=== PATIENT | female | born 1945 | race Caucasian/White ===

== ENCOUNTER 2016-08-19 06:21 | Day surgery (SDC) | payer MEDICARE, OTHER ==
[2016-08-15 15:01] VITALS: BMI 41.1
[~2016-08-19 06:21] MED LIST: ALPRAZolam 0.25 MG TAB PO PRN; ASPIRIN 325 MG TAB PO ONE; ATORVASTATIN 80 MG TAB PO STA; NITROGLYCERIN SL TABS 0.4 MG TAB SUBLINGUAL PRN; SODIUM CHLORIDE 0.9% 1,000 ML in EMPTY BAG 1 BAG IV ONE
[2016-08-19 07:17] LABS: Glucose,Whole Blood 124 mg/dL (75-99)
[2016-08-19 07:23] VITALS: TEMP 98.5
[2016-08-19] MEDS ORDERED: MIDAZOLAM 2 MG/2 ML VIAL ONE ×2 (07:41)
[2016-08-19] MEDS ORDERED: fentaNYL (PF) 50 MCG/ML 2 ML AMP ONE (07:43)
[2016-08-19] MEDS ORDERED: BENZOCAINE SPRAY 100 APPLIC/CAN MUCOUS MEM ONE (08:05)
[2016-08-19] MEDS ORDERED: SODIUM CHLORIDE 0.9% 1,000 ML IV ONE (08:05)
[2016-08-19] MEDS ORDERED: LIDOCAINE 2% INJ 20 MG/ML (20 ML MDV) ONE (08:13)
[2016-08-19] MEDS ORDERED: VERAPAMIL 2.5 MG/ML 2 ML AMP ONE (08:43)
[2016-08-19] MEDS ORDERED: IV FLUID CONTINUATION 700 ML IV ONE (09:05)
[2016-08-19] MEDS ORDERED: HEPARIN SODIUM 1,000 UNIT/ML VIAL ONE (09:08)
[2016-08-19] MEDS ORDERED: LIDOCAINE 2% INJ 20 MG/ML SQ ONE (09:12)
[2016-08-19] MEDS: VERAPAMIL SYRINGE (5 MG/10 ML) INTRAARTER ONE ×2 (09:14→09:36)
[2016-08-19] MEDS ORDERED: HEPARIN SODIUM 1,000 UNIT/ML VIAL IV ONE (09:14)
[2016-08-19] MEDS ORDERED: IOHEXOL 350 MG/ML 125ML BOTTLE INJ ONE (09:35)
[2016-08-19] MEDS ORDERED: RX INFO: IV CONTRAST WAS GIVEN 1 EACH MISC MISCELLANE PRN (09:42)
[2016-08-19] MEDS ORDERED: SODIUM CHLORIDE 0.9% 1,000 ML IV SCH (09:45)
[2016-08-19 10:00] LABS: Glucose,Whole Blood 111 mg/dL (75-99)
[2016-08-19 17:01] LABS: Glucose,Whole Blood 108 mg/dL (75-99)
[2016-08-19 17:19] LABS: Blood Urea Nitrogen 14 mg/dL (7-17); Creatine Kinase 57 U/L (30-135)
[2016-08-19 18:04] VITALS: BP 130/69; PULSE 62; RESP 18
--- NOTE | 2016-08-20 11:41 | PCN ---
TRANSESOPHAGEAL ECHOCARDIOGRAM: DATE OF SERVICE: 08/19/2016 PERFORMING PHYSICIAN: Malena BENNETT, WRITER TECHNICAL PUBLICATIONS PROCEDURE PERFORMED: Transesophageal echocardiogram. INDICATION: This is a pleasant 70-year-old female patient who was experiencing progressive exertional dyspnea and bilateral lower extremity edema. She underwent transthoracic echocardiogram which showed evidence of moderate to severe aortic stenosis. The transesophageal echocardiogram is to assess the aortic valve. She is also known to have patent foramen ovale in the ( ). COMPLICATION: None. LEVEL OF SEDATION: Moderate with a sedation length of 30 minutes. PROCEDURE DESCRIPTION: ( ). FINDINGS: The left ventricular dimension and systolic function appeared to be within normal limits with an ejection fraction of 55% to 60% and normal wall motion. The right ventricle appears to be dilated. The left atrium appears to be mildly dilated and the right atrium appears to be moderately dilated. The left atrial appendage appears to be free from any thrombus. The intra-atrial septum appears to aneurysmal with evidence of patent foramen ovale and extensive right to left shunt seen. I also suspecting that the intra-atrial septum is fenestrated with possible AST with a PFO explaining the right side enlargement. Aortic valve is trileaflet valve and looking at the valve by 2-D echocardiogram it seems to be opening with an aortic valve area of more than 2 cm2. The mitral valve appeared to be also mildly thickened with mild MR. There was mild to moderate tricuspid regurgitation seen. The pulmonic valve appears to be normal. There is what seems to be basal septal hypertrophy seen with mild LVOT obstructions. The aortic root appeared to be dilated. CONCLUSION: 1. Aneurysmal intra-atrial septum with evidence of patent foramen ovale and possible fenestrated septum with evidence of right to left shunt and left to right shunt. 2. Normal left atrial appendage without any evidence of thrombus. 3. Normal left ventricular dimension and systolic function with an ejection fraction of 55%. 4. Dilated right side with dilated right atrium as well as right ventricle. 5. Trileaflet aortic valve without any evidence of aortic stenosis with mild aortic insufficiency. 6. Basal septal hypertrophy with mild LVOT obstruction and peak gradient of 50 mmHg and mean of 25 mmHg. 7. Thickened mitral valve leaflet with mild mitral regurgitation. 8. Normal tricuspid valve and pulmonic valve. 9. Dilated aortic root. POST-PROCEDURE MANAGEMENT: 1. The patient is going to undergo coronary angiogram as well as left heart catheterization. 2. Also I will do an aortic root angiogram to assess the dilatation of the aortic root. 3. Follow up with the patient. EMERSON
--- NOTE | 2016-08-21 05:52 | PCN ---
TRANSESOPHAGEAL ECHOCARDIOGRAM DATE OF SERVICE: 08/19/2016 PERFORMING PHYSICIAN: Jim Osorio MD, certified nuclear medicine technologist. PROCEDURE PERFORMED: Transesophageal echocardiogram. INDICATION: This is a pleasant 70-year-old female patient who was experiencing progressive exertional dyspnea on bilateral lower extremities edema. She underwent transthoracic echocardiogram which showed evidence of moderate to severe aortic stenosis. The transesophageal echocardiogram is to assess the aortic valve. She is also know to have patent foramen ovale in the past. COMPLICATIONS: None. LEVEL OF SEDATION: Moderate with a sedation length of 30 minutes. PROCEDURE DESCRIPTION: ( ) FINDINGS: The left ventricular dimension and systolic function appeared to be within normal limits with an ejection fraction of about 55% to 60% and normal wall motion. The right ventricle appeared to be dilated. The left atrium appeared to be mildly dilated and the right atrium appeared to be moderately dilated. The left atrial appendage appeared to be free from any thrombus. The interatrial septum appeared to be aneurysmal with evidence of patent foramen ovale and extensive right to left shunt seen. I am also suspecting that the interatrial septum is fenestrated with possible ASD with the PFO explaining the right side enlargement. The aortic valve is trileaflet valve and looking at the valve by 2-D echo cardiogram it seems to be opening with an aortic valve area of more than 2 sq cm. The mitral valve appeared to be also mildly thickened with mild MR. There was mild to moderate tricuspid regurgitation seen. The pulmonic valve appeared to be normal. There is what seems to be basal septal hypertrophy was seen with mild LVOT obstructions. The aortic root appeared to be dilated. CONCLUSION: 1. Aneurysmal interatrial septum with evidence of patent foramen ovale and possible fenestrated septum with evidence of right to left shunt and left to right shunt. 2. Normal left atrial appendage without any evidence of thrombus. 3. Normal left ventricular dimension and systolic function with an ejection fraction of 55%. 4. Dilated right side with dilated right atrium as well as right ventricle. 5. Trileaflet aortic valve without any evidence of aortic stenosis with mild aortic insufficiency. 6. Basal septal hypertrophy with mild LVOT obstruction and peak gradient of 50 mmHg and mean of 25 mmHg. 7. Thickened mitral valve leaflets with mild mitral regurgitation. 8. Normal tricuspid valve and pulmonic valve. 9. Dilated aortic root. POSTPROCEDURE MANAGEMENT: 1. The patient is going to undergo coronary angiogram as well as left heart catheterization. 2. Also, I will do an aortic root angiogram to assess the dilatation of the aortic root. 3. Follow up with the patient. EMERSON
[2016-08-21 12:59] LABS: Non-African American GFR(MDRD) >60 (>60 ml/min/1.73 sqM)
--- NOTE | 2016-08-21 17:08 | PCN ---
CARDIAC CATHETERIZATION DATE OF SERVICE: 08/19/2016 PERFORMING PHYSICIAN: Jim Osorio M.D., beam dyer operator PROCEDURES PERFORMED: 1. Selective right and left coronary angiogram. 2. Left heart catheterization. 3. Aortic root angiogram. INDICATION: This is a pleasant 70-year-old female patient who was experiencing exertional dyspnea. The patient was brought in to undergo a KEEGAN as well as a heart catheterization. APPROACH: Right radial artery. COMPLICATIONS: None. LEVEL OF SEDATION: Moderate, with sedation length of 30 minutes. PROCEDURE DESCRIPTION: After obtaining informed consent, the patient was brought to the cardiac lab aid. The right radial artery was cannulated using micropuncture technique. The micropuncture wire passed easily. Then I placed a 6 [place]i sheath in the right radial artery. Subsequently I did selective right and left coronary angiogram using JR4 and JR3.5 catheters. After that I did the left heart catheterization using 6 [place]i pigtail catheter. Then I ended doing an aortic root angiogram. The procedure was completed without any complications. SELECTIVE CORONARY ANGIOGRAM: 1. Right coronary artery is a large-caliber vessel. It is a dominant vessel. The right coronary artery has mild disease only in the ostium. In the mid portion it is angiographically normal. Distally it is normal and bifurcates into PDA and PLV branches; both are angiographically normal. 2. The left main is angiographically normal. It bifurcates into left circumflex and left anterior descending artery. 3. The left circumflex is a large-caliber vessel and it is a non-dominant vessel. The proximal left circumflex appears to have mild disease only. The mid left circumflex appeared to be angiographically normal and gives rise to a large first OM branch, which appeared to be angiographically normal. The circumflex distally is angiographically normal. 4. Left anterior descending artery. The proximal LAD appeared to have mild disease only. The mid LAD appeared to be angiographically normal and gives rise to a diagonal branch which seems to be angiographically normal. The LAD ( ) angiographically normal and gives rise to a second diagonal which is a small- caliber vessel and seems to be angiographically normal. 5. Hemodynamics. The left ventricular end-diastolic pressure was about 20 mmHg, and there was a mild gradient across the aortic valve of about 10 mm peak to peak. 6. Aortic root angiogram. The aortic root angiogram was performed in the KAZAKH projection and using a power injection. The aortic root is definitely dilated. I will obtain a CTA for better clarification. CONCLUSION: 1. Mild non-obstructive coronary artery disease. 2. Elevated left ventricular end-diastolic pressure. 3. Mild gradient across the aortic valve with peak to peak of 10 mmHg. 4. Dilated aortic root. POST-PROCEDURE MANAGEMENT: 1. I will obtain a CTA of the thoracic aorta for better clarification. 2. Continue the current medical treatment. 3. Follow up with the patient. EMERSON
== END 2016-08-19 17:45 | disposition home or self-care (01) ==
LOC: CATHCVL 06:21
PROVIDERS: ATTEND Internal Medicine Interventional Cardiology
DX: I08.3 Combined rheumatic disorders of mitral, aortic and tricuspid valves (principal); E78.5 Hyperlipidemia, unspecified; I10 Essential (primary) hypertension; E11.9 Type 2 diabetes mellitus without complications; Q21.1 Atrial septal defect; Z79.82 Long term (current) use of aspirin; Z79.899 Other long term (current) drug therapy
CPT/HCPCS: 93312; 93320; 93325; 93458; 82550; 84520; C1769 ×2; C1894; J2001; J1644; Q9967; 82565

== ENCOUNTER → 2016-08-22 | Outpatient (CLI) | payer MEDICARE, OTHER ==
--- NOTE | 2016-08-22 13:38 | CT ---
CT CHEST FOR PULMONARY EMBOLISM. EXAMINATION TYPE: CT angio chest DATE OF EXAM: 08/22/2016 INDICATION: Fatigue, SOB, AAA CT DLP: 869 mGycm, Automated exposure control for dose reduction was used. CONTRAST: Patient injected with 100 mL of Omnipaque 350. COMPARISON: NONE TECHNIQUE: CT of the chest is performed on a spiral scan at 2 mm thick sections. Study is performed with intravenous contrast timed for evaluation for pulmonary embolism. This will limit additional po rtions of the evaluation. 3-D MIP images reconstructed by the technologist are reviewed on the compu ter in the coronal and sagittal planes. Three-D reconstructed images performed on the [employer] computer separately by the technologist are presented. FINDINGS: Aorta tapers throughout its visualized course. No dissection is evident. The ascending thoracic aorta is prominent at 4.5 cm. No mediastinal or hilar adenopathy enlarged by CT criteria is evident. The ascending aorta diameter at the level of the main pulmonary artery is 4.5 cm. The main pulmonary artery diameter at the bifur cation is 2.9 cm. Lung windows are clear. Limited CT section through the upper abdomen are unremarkable. IMPRESSIONS: 1. Ascending thoracic aortic aneurysm measuring 4.5 cm. Descending thoracic aorta tapers normally thr ough its visualized course.
== END | disposition home or self-care (01) ==
LOC: RADCTMAIN 11:25
PROVIDERS: ATTEND Internal Medicine Interventional Cardiology
DX: I71.2 Thoracic aortic aneurysm, without rupture (principal)
CPT/HCPCS: 71275; Q9967

== ENCOUNTER → 2016-09-18 | Outpatient (CLI) | payer MEDICARE, OTHER ==
--- NOTE | 2016-09-18 13:53 | MR ---
EXAMINATION TYPE: MR brain wo/w con DATE OF EXAM: 09/18/2016 COMPARISON: NONE HISTORY: transient cerebral ischemic attack per order, headache with pain behind eyes, numbness left arm per patient. TECHNIQUE: Multiplanar, multisequence images of the brain and brainstem is performed without and with IV contras t, utilizing 17 mL intravenous MultiHance . FINDINGS: Diffusion weighted images demonstrate no evidence of a recent infarct or other diffusion ab normality. There is no worrisome extra-axial fluid collection. The ventricular system and cisternal spaces are normal in size and appearance. The brain volume is age appropriate. There are scattered foci of T2 hyperintensity seen throughout the white matter bilaterally. Approximately 45-65 scattered small lesions are present. Midline structures demonstrate normal morphology. The craniocervical junction appears within normal limits. Post contrast images demonstrate no abnormal enhancement. The dural venous sinuses appear pa tent. The visualized sinuses are clear and the globes are intact. IMPRESSION: No evidence of a recent infarct. Moderate to severe nonspecific white matter changes most likely on basis of product of chronic small vessel ischemic change in patient of this age noted.
== END | disposition home or self-care (01) ==
LOC: RADMRIMAIN 12:36
PROVIDERS: ATTEND Family Medicine
DX: G45.9 Transient cerebral ischemic attack, unspecified (principal)
CPT/HCPCS: 70553; A9577

== ENCOUNTER → 2017-05-06 | Outpatient (CLI) | payer MEDICARE, OTHER ==
--- NOTE | 2017-05-07 14:24 | MM ---
Reason for exam: screening (asymptomatic). Last mammogram was performed 2 years and 2 months ago. History: Patient is postmenopausal. Benign MG stereo VAD BX LT of the left breast, July 31, 2014. Physical Findings: A clinical breast exam by your physician is recommended on an annual basis and results should be correlated with mammographic findings. MG 3D Screening Mammo W/Cad Bilateral CC and MLO view(s) were taken. Prior study comparison: February 21, 2015, left breast MG 3d diag mammo w/cad LT. July 07, 2014, left breast MG work up mamm w CAD LT. The breast tissue is heterogeneously dense. This may lower the sensitivity of mammography. Previous mammotome biopsy in the left breast. No significant changes when compared with prior studies. ASSESSMENT: Benign, BI-RAD 2 RECOMMENDATION: Routine screening mammogram of both breasts in 1 year.
== END | disposition home or self-care (01) ==
LOC: RADMAMWWP 13:42
PROVIDERS: ATTEND Family Medicine
DX: Z12.31 Encounter for screening mammogram for malignant neoplasm of breast (principal); M89.9 Disorder of bone, unspecified; Z78.0 Asymptomatic menopausal state
CPT/HCPCS: 77063; 77067

== ENCOUNTER → 2017-05-13 | Outpatient (CLI) | payer MEDICARE, OTHER ==
--- NOTE | 2017-05-14 08:15 | BD ---
EXAMINATION TYPE: MG DEXA axial skeleton. DATE OF EXAM: 05/13/2017 COMPARISON: NONE CLINICAL HISTORY: N95.1 POST MENOPAUSAL,M89.9 DISORDER OF BONE Height: 5 FT Weight: 222 FRAX RISK QUESTIONS: Alcohol (3 or more units per day): NO Family History (Parent hip fracture): NO Glucocorticoids (More than 3mos): NO (Ex: prednisone, prednisolone, methylprednisolone, dexamethasone, and hydrocortisone). History of Fracture in Adulthood: NO Secondary Osteoporosis: 1. Type 1 Diabetes: NO 2. Hyperthyroidism: NO 3. Menopause before 45: YES 4. Malnutrition: NO 5. Chronic liver disease: NO Rheumatoid Arthritis: NO Current Tobacco Use: NO RISK FACTORS HISTORY OF: Family History of Osteoporosis: YES Active: YES Postmenopausal woman: TOTAL HYST AG E 35 Take estrogen and/or progesterone medications: TOOK ESTROGEN AFTER HYST BUT DID NOT TAKE IT FOR LONG Lost more than 2 inches in height since high school: YES MEDICATIONS: Thyroid Medications: YES Which medication: LEVOTHYROXINE How Long: APPROX 10 YEARS Osteoporosis Medications: Which medication: How Long: Additional Medications: LEVOTHYROXINE, GLIPIZIDE, LISINOPRIL, SIMVASTATIN, CITALOPRAM, ASPIRIN, VIT D , PROPRANOLOL, , Additional History: EXAM MEASUREMENTS: Bone mineral densitometry was performed using the [employer] System. Bone mineral density as measured about the Lumbar spine is: ----- L1-L4(G/cm2): 1.008 T Score Values are as follows: ----- L2: -1.7 ----- L3: -1.9 ----- L4: -0.4 ----- L1-L4: -1.4 BASELINE Bone mineral density about the R hip (g/cm2): 0.729 Bone mineral density about the L hip (g/cm2): 0.732 T Score values are as follows: -----R Neck: -2.2 -----L Neck: -2.2 -----R Total: -1.2 -----L Total: -1.3 BASELINE IMPRESSION: Osteopenia. NOTE: T-SCORE=SD OF THE YOUNG ADULT MEAN.
== END | disposition home or self-care (01) ==
LOC: RADBDWWP 15:35
PROVIDERS: ATTEND Family Medicine
DX: M85.80 Other specified disorders of bone density and structure, unspecified site (principal); N95.1 Menopausal and female climacteric states
CPT/HCPCS: 77080

== ENCOUNTER → 2018-08-12 | Outpatient (CLI) | payer MEDICARE, OTHER ==
--- NOTE | 2018-08-17 09:39 | MM ---
Reason for exam: screening (asymptomatic). Last mammogram was performed 1 year and 3 months ago. History: Patient is postmenopausal. Benign MG stereo VAD BX LT of the left breast, July 31, 2014. Physical Findings: A clinical breast exam by your physician is recommended on an annual basis and results should be correlated with mammographic findings. MG 3D Screening Mammo W/Cad Bilateral CC and MLO view(s) were taken. Prior study comparison: May 06, 2017, bilateral MG 3d screening mammo w/cad. February 21, 2015, left breast MG 3d diag mammo w/cad LT. The breast tissue is heterogeneously dense. This may lower the sensitivity of mammography. No suspicious abnormality. No significant changes when compared with prior studies. ASSESSMENT: Negative, BI-RAD 1 RECOMMENDATION: Routine screening mammogram of both breasts in 1 year.
== END | disposition home or self-care (01) ==
LOC: RADMAMWWP 15:21
PROVIDERS: ATTEND Family Medicine
DX: Z12.31 Encounter for screening mammogram for malignant neoplasm of breast (principal)
CPT/HCPCS: 77063; 77067

== ENCOUNTER → 2019-03-08 | Outpatient (CLI) | payer MEDICARE, OTHER ==
--- NOTE | 2019-03-08 12:02 | XR ---
EXAMINATION TYPE: XR lumbar spine 2 or 3V DATE OF EXAM: 03/08/2019 CLINICAL HISTORY: Left-sided back pain TECHNIQUE: Frontal and lateral images of the lumbar spine are obtained. COMPARISON: 09/19/2009 FINDINGS: There is a mild dextroscoliosis of the lumbar spine. There are 5 lumbar type vertebral bod ies identified. The lumbar spine shows satisfactory alignment without evidence of acute fracture or dislocation. Vertebral body heights are maintained. Intervertebral disc space narrowing is seen at L4 -L5 and L5-S1. Multilevel facet arthropathy. Mild multilevel anterior osteophytes. Moderate atheroscl erosis of the abdominal aorta. IMPRESSION: 1. Overall moderate multilevel degenerative disc disease of the lumbar spine most pronounced of L4-S1 . 2. No acute fracture is seen in the lumbar spine.
== END | disposition home or self-care (01) ==
LOC: RADXRMAIN 10:52
PROVIDERS: ATTEND Family Medicine
DX: M51.16 Intervertebral disc disorders with radiculopathy, lumbar region (principal); M51.17 Intervertebral disc disorders with radiculopathy, lumbosacral region
CPT/HCPCS: 72100

== ENCOUNTER → 2019-08-01 | Outpatient (CLI) | payer MEDICARE, OTHER ==
[2019-08-01 11:08] LABS: African American GFR (CKD) >90 (>60 ml/min/1.73 sqM); Blood Urea Nitrogen 16 mg/dL (7-17); Non-African American GFR(CKD) >90 (>60 ml/min/1.73 sqM)
--- NOTE | 2019-08-01 12:08 | CT ---
EXAMINATION TYPE: CT angio chest DATE OF EXAM: 08/01/2019 COMPARISON: CT 08/22/2016 HISTORY: follow up known thoracic aneurysm CT DLP: 811 mGycm Automated exposure control for dose reduction was used. CONTRAST: CTA scan of the thorax is performed without and with IV Contrast, patient injected with 100 mL of Iso janel 370, pulmonary embolism protocol. MIP images are created and reviewed. 3D reconstructed images are created on an independent workstation and reviewed. FINDINGS: LUNGS: The lungs are stable, too subcentimeter pulmonary nodules in the right lower lobe are again no sergio.. There is no pleural effusion or pneumothorax seen. The tracheobronchial tree is patent. AORTA: Ascending aorta measures approximately 4.7 cm as compared to prior exam when it measured appro ximately 4.5. Proximal descending aorta measures 2.8 cm. At the level of the hiatus the aorta measure s approximately 2.4 cm. MEDIASTINUM: There is satisfactory enhancement of the pulmonary artery and its branches, there is no CT evidence for pulmonary embolism. There are no greater than 1 cm hilar or mediastinal lymph nodes. No pericardial effusion is seen. OTHER: No additional significant abnormality is seen. IMPRESSION: THORACIC AORTIC ANEURYSM SHOWS MINIMAL INTERVAL GROWTH. STABLE RIGHT LOWER LOBE PULMONARY NODULES.
== END | disposition home or self-care (01) ==
LOC: RADCTMAIN 09:53
PROVIDERS: ATTEND Internal Medicine Interventional Cardiology
DX: I71.2 Thoracic aortic aneurysm, without rupture (principal)
CPT/HCPCS: 82565; 84520; 71275; 36415; Q9967

== ENCOUNTER 2019-09-03 11:17 | Emergency (ER) | payer MEDICARE, OTHER ==
[2019-09-03 11:21] VITALS: TEMP 98.2
--- NOTE | 2019-09-03 12:01 | ED ---
General Adult HPI - General Chief complaint: Back Pain/Injury Stated complaint: Back pain,CLAUDETTE Time Seen by Provider: 09/03/19 11:45 Source: patient, RN notes reviewed Mode of arrival: ambulatory Limitations: physical limitation - History of Present Illness Initial comments: This a 73-year-old female presents emergency Department chief complaint low back pain. Patient states started 4 days ago and has not improved states that she worsen. Denies any trauma. She does state that it's worse with any sort of movement. She states approximate 4-6 weeks ago she had x-rays of her back ordered by her primary care physician because she had back pain at that time which resolved on its own. She states this pain is similar to that. She has no point of dysuria, hematuria, diarrhea constipation no abdominal pain. Patient denies fever, chills she has meant that she had a cough a few days ago which has resolved patient states she has chronic shortness of breath related to her throat which is not new today. Denies any chest pain, headache or dizziness .Patient is concerned that she has Covid because she has back pain. - Related Data Home Medications Medication Instructions Recorded Confirmed Atenolol 100 mg PO HS 06/12/15 08/15/16 Cholecalciferol [Vitamin D3 (25 5,000 unit PO HS 06/12/15 08/15/16 Mcg = 1000 Iu)] Citalopram Hydrobromide [CeleXA] 20 mg PO HS 06/12/15 08/15/16 Levothyroxine Sodium [Synthroid] 75 mcg PO QAM 06/12/15 08/19/16 Lisinopril [Zestril] 5 mg PO HS 06/12/15 08/15/16 Multivit-Min/Iron/Folic/Lutein 1 each PO HS 06/12/15 08/15/16 [Centrum Silver Women Tablet] Omeprazole 20 mg PO HS 06/12/15 08/15/16 Simvastatin [Zocor] 20 mg PO HS 06/12/15 08/15/16 glipiZIDE [Glucotrol XL] 1.25 mg PO AC-BRKFST 06/12/15 08/15/16 Aspirin 81 mg PO HS 11/20/15 08/19/16 Furosemide [Lasix] 40 mg PO DAILY 08/15/16 08/15/16 Previous Rx's Medication Instructions Recorded Nitrofurantoin Monohyd/M-Cryst 100 mg PO Q12HR #14 cap 09/03/19 [Macrobid] Allergies Allergy/AdvReac Type Severity Reaction Status Date / Time No Known Allergies Allergy Verified 09/03/19 11:21 Review of Systems ROS Statement: Those systems with pertinent positive or pertinent negative responses have been documented in the HPI. ROS Other: All systems not noted in ROS Statement are negative. Past Medical History Past Medical History: Chest Pain / Angina, Diabetes Mellitus, GERD/Reflux, Hyperlipidemia, Hypertension, Thyroid Disorder Additional Past Medical History / Comment(s): Increased SOB with activity,talking and rolling over in bed,Aortic stenosis, parkinson's History of Any Multi-Drug Resistant Organisms: None Reported Past Surgical History: Appendectomy, Cholecystectomy, Hysterectomy, Orthopedic Surgery, Tonsillectomy Additional Past Surgical History / Comment(s): right ft spurs removed; BILATERAL HAND SURGERY, cataract removal-BILATERAL Past Anesthesia/Blood Transfusion Reactions: No Reported Reaction Additional Past Anesthesia/Blood Transfusion Reaction / Comment(s): NO hx blood transfusion Past Psychological History: Depression Smoking Status: Never smoker Past Alcohol Use History: None Reported Past Drug Use History: None Reported - Past Family History Mother Family Medical History: No Reported History Additional Family Medical History / Comment(s): growths around the kidney- removed Father Family Medical History: Chest Pain / Angina, Coronary Artery Disease (CAD) Additional Family Medical History / Comment(s): CABG ( from complications od), MRSA (post CABG in [place]) General Exam Limitations: physical limitation General appearance: alert, in no apparent distress Head exam: Present: atraumatic, normocephalic, normal inspection Eye exam: Present: normal appearance, PERRL, EOMI. Absent: scleral icterus, conjunctival injection, periorbital swelling ENT exam: Present: normal exam, mucous membranes moist, TM's normal bilaterally Neck exam: Present: normal inspection, full ROM. Absent: tenderness, meningismus, lymphadenopathy Respiratory exam: Present: normal lung sounds bilaterally. Absent: respiratory distress, wheezes, rales, rhonchi, stridor Cardiovascular Exam: Present: regular rate, normal rhythm, normal heart sounds. Absent: systolic murmur, diastolic murmur, rubs, gallop, clicks GI/Abdominal exam: Present: soft, normal bowel sounds. Absent: distended, tenderness, guarding, rebound, rigid Extremities exam: Present: other (Lower extremity strength equal bilaterally, lower extremity neurovascular intact equal color equal warmth) Back exam: Present: full ROM (Pain with range of motion the lumbar spine), tenderness, paraspinal tenderness. Absent: CVA tenderness (R), CVA tenderness (L), vertebral tenderness Neurological exam: Present: alert, oriented X3, reflexes normal. Absent: motor sensory deficit Skin exam: Present: warm, dry, intact, normal color. Absent: rash Course Vital Signs 09/03/19 11:18 Temperature 98.2 F Pulse Rate 76 Respiratory 18 Rate Blood Pressure 153/73 O2 Sat by Pulse 94 L Oximetry Medical Decision Making - Medical Decision Making 73-year-old female presented for low back pain. Patient has a history of back pain she denies having trauma's time x-rays were repeated in no acute findings. Patient's pain is mechanical in nature. She has no red flag symptoms she has no difficulty and bleeding. Patient's urinalysis reveals evidence of urinary tract infection. Patient discharged on antibiotics return parameters were discussed. - Lab Data Result diagrams: 09/03/19 12:02 09/03/19 12:02 Lab Results 09/03/19 09/03/19 09/03/19 Range/Units 12:02 12:02 12:02 WBC 7.0 (3.8-10.6) k/uL RBC 4.64 (3.80-5.40) m/uL Hgb 14.1 (11.4-16.0) gm/dL Hct 42.6 (34.0-46.0) % MCV 91.6 (80.0-100.0) fL MCH 30.3 (25.0-35.0) pg MCHC 33.1 (31.0-37.0) g/dL RDW 13.1 (11.5-15.5) % Plt Count 232 (150-450) k/uL Neutrophils % 58 % Lymphocytes % 32 % Monocytes % 5 % Eosinophils % 3 % Basophils % 1 % Neutrophils # 4.1 (1.3-7.7) k/uL Lymphocytes # 2.3 (1.0-4.8) k/uL Monocytes # 0.3 (0-1.0) k/uL Eosinophils # 0.2 (0-0.7) k/uL Basophils # 0.0 (0-0.2) k/uL Sodium 138 (137-145) mmol/L Potassium 4.1 (3.5-5.1) mmol/L Chloride 102 (98-107) mmol/L Carbon Dioxide 28 (22-30) mmol/L Anion Gap 8 mmol/L BUN 15 (7-17) mg/dL Creatinine 0.44 L (0.52-1.04) mg/dL Est GFR (CKD-EPI)AfAm >90 (>60 ml/min/1.73 sqM) Est GFR (CKD-EPI)NonAf >90 (>60 ml/min/1.73 sqM) Glucose 192 H (74-99) mg/dL Plasma Lactic Acid Rey 1.7 (0.7-2.0) mmol/L Calcium 9.1 (8.4-10.2) mg/dL Total Bilirubin 0.5 (0.2-1.3) mg/dL AST 34 (14-36) U/L ALT 8 (4-34) U/L Alkaline Phosphatase 74 (38-126) U/L Total Protein 6.5 (6.3-8.2) g/dL Albumin 4.1 (3.5-5.0) g/dL Amylase 37 (30-110) U/L Lipase 64 (23-300) U/L Urine Color Urine Appearance (Clear) Urine pH (5.0-8.0) Ur Specific Baldwin (1.001-1.035) Urine Protein (Negative) Urine Glucose (UA) (Negative) Urine Ketones (Negative) Urine Blood (Negative) Urine Nitrite (Negative) Urine Bilirubin (Negative) Urine Urobilinogen (<2.0) mg/dL Ur Leukocyte Esterase (Negative) Urine RBC (0-5) /hpf Urine WBC (0-5) /hpf Ur Squamous Epith Cells (0-4) /hpf Urine Bacteria (None) /hpf Urine Mucus (None) /hpf 09/03/19 Range/Units 13:03 WBC (3.8-10.6) k/uL RBC (3.80-5.40) m/uL Hgb (11.4-16.0) gm/dL Hct (34.0-46.0) % MCV (80.0-100.0) fL MCH (25.0-35.0) pg MCHC (31.0-37.0) g/dL RDW (11.5-15.5) % Plt Count (150-450) k/uL Neutrophils % % Lymphocytes % % Monocytes % % Eosinophils % % Basophils % % Neutrophils # (1.3-7.7) k/uL Lymphocytes # (1.0-4.8) k/uL Monocytes # (0-1.0) k/uL Eosinophils # (0-0.7) k/uL Basophils # (0-0.2) k/uL Sodium (137-145) mmol/L Potassium (3.5-5.1) mmol/L Chloride (98-107) mmol/L Carbon Dioxide (22-30) mmol/L Anion Gap mmol/L BUN (7-17) mg/dL Creatinine (0.52-1.04) mg/dL Est GFR (CKD-EPI)AfAm (>60 ml/min/1.73 sqM) Est GFR (CKD-EPI)NonAf (>60 ml/min/1.73 sqM) Glucose (74-99) mg/dL Plasma Lactic Acid Rey (0.7-2.0) mmol/L Calcium (8.4-10.2) mg/dL Total Bilirubin (0.2-1.3) mg/dL AST (14-36) U/L ALT (4-34) U/L Alkaline Phosphatase (38-126) U/L Total Protein (6.3-8.2) g/dL Albumin (3.5-5.0) g/dL Amylase (30-110) U/L Lipase (23-300) U/L Urine Color Yellow Urine Appearance Cloudy H (Clear) Urine pH 5.5 (5.0-8.0) Ur Specific Baldwin 1.025 (1.001-1.035) Urine Protein Negative (Negative) Urine Glucose (UA) Negative (Negative) Urine Ketones Negative (Negative) Urine Blood Negative (Negative) Urine Nitrite Negative (Negative) Urine Bilirubin Negative (Negative) Urine Urobilinogen <2.0 (<2.0) mg/dL Ur Leukocyte Esterase Moderate H (Negative) Urine RBC 7 H (0-5) /hpf Urine WBC 16 H (0-5) /hpf Ur Squamous Epith Cells 5 H (0-4) /hpf Urine Bacteria Rare H (None) /hpf Urine Mucus Rare H (None) /hpf Disposition Clinical Impression: Lumbar back pain, Urinary tract infection Disposition: HOME SELF-CARE Condition: Stable Instructions (If sedation given, give patient instructions): Acute Low Back Pain (ED) Additional Instructions: Please return to the Emergency Department if symptoms worsen or any other concerns. Prescriptions: Nitrofurantoin Monohyd/M-Cryst [Macrobid] 100 mg PO Q12HR #14 cap Is patient prescribed a controlled substance at d/c from ED?: No Referrals: Ibis Ly MD [Primary Care Provider] - 1-2 days Time of Disposition: 13:33
[2019-09-03 12:10] LABS: Basophils % (A) 1 %; Eosinophils # (A) 0.2 k/uL (0-0.7); Eosinophils % (A) 3 %; HCT 42.6 % (34.0-46.0); HGB 14.1 gm/dL (11.4-16.0); Lymphocytes # (A) 2.3 k/uL (1.0-4.8); Lymphocytes % (A) 32 %; MCH 30.3 pg (25.0-35.0); MCHC 33.1 g/dL (31.0-37.0); MCV 91.6 fL (80.0-100.0); Mean Platelet Volume 7.7; Monocytes # (A) 0.3 k/uL (0-1.0); Monocytes % (A) 5 %; Neutrophils # (A) 4.1 k/uL (1.3-7.7); Neutrophils % (A) 58 %; Platelet Count 232 k/uL (150-450); RBC 4.64 m/uL (3.80-5.40); RDW 13.1 % (11.5-15.5)
[2019-09-03 12:29] LABS: ALT 8 U/L (4-34); AST 34 U/L (14-36); African American GFR (CKD) >90 (>60 ml/min/1.73 sqM); Albumin 4.1 g/dL (3.5-5.0); Alkaline Phosphatase 74 U/L (38-126); Amylase 37 U/L (30-110); Anion Gap 8 mmol/L; Blood Urea Nitrogen 15 mg/dL (7-17); Calcium 9.1 mg/dL (8.4-10.2); Carbon Dioxide 28 mmol/L (22-30); Chloride 102 mmol/L (98-107); Glucose 192 mg/dL (74-99); Non-African American GFR(CKD) >90 (>60 ml/min/1.73 sqM); Potassium 4.1 mmol/L (3.5-5.1); Sodium 138 mmol/L (137-145); Total Bilirubin 0.5 mg/dL (0.2-1.3); Total Protein 6.5 g/dL (6.3-8.2)
--- NOTE | 2019-09-03 12:29 | XR ---
EXAMINATION TYPE: XR chest 2V DATE OF EXAM: 09/03/2019 COMPARISON: 07/15/2010 HISTORY: Shortness of breath TECHNIQUE: Frontal and lateral views of the chest are obtained. FINDINGS: Scattered senescent parenchymal changes noted. Hyperinflation compatible with COPD. No evidence for infiltrate. No evidence for atelectasis. Heart size is stable. Mediastinal structures are stable and grossly unremarkable. No evidence for hilar prominence. Degenerative changes dorsal spine. IMPRESSION: 1. No evidence for acute pulmonary disease.
--- NOTE | 2019-09-03 12:30 | XR ---
EXAMINATION TYPE: XR lumbar spine 2 or 3V DATE OF EXAM: 09/03/2019 CLINICAL HISTORY: pain TECHNIQUE: Three views of the lumbar spine are submitted. COMPARISON: None. FINDINGS: There are 5 lumbar type vertebral bodies identified. . Vertebral body heights are within normal limit s. Severe degenerative disc space narrowing at L4-5 and L5-S1 with moderate facet joint arthropathy . 1 anterolisthesis L5 on S1 measuring an estimated 7 mm. The overlying soft tissue appears unremark able. IMPRESSION: No acute fracture is seen in the lumbar spine. ICD 10 NO FRACTURE, INITIAL EVALUATION
[2019-09-03 13:19] LABS: Appearance,Urine Cloudy (Clear); Bacteria,Urine Rare /hpf; Bilirubin,Urine Negative (Negative); Blood,Urine Negative (Negative); Color,Urine Yellow; Glucose,Urine (UA) Negative (Negative); Ketones,Urine Negative (Negative); Leukocyte Esterase,Urine Moderate (Negative); Mucus,Urine Rare /hpf; Nitrite,Urine Negative (Negative); PH, Urine 5.5 (5.0-8.0); Protein,Urine Negative (Negative); RBC,Urine 7 /hpf (0-5); Specific Gravity,Urine 1.025 (1.001-1.035); Squamous Epithelial Cell,Urine 5 /hpf (0-4); Urobilinogen,Urine <2.0 mg/dL (<2.0); WBC,Urine 16 /hpf (0-5)
[2019-09-03 13:43] VITALS: BP 136/89; PULSE 79; RESP 16
== END 2019-09-03 13:42 | disposition home or self-care (01) ==
LOC: EC 11:17
DX: M54.5 Low back pain (principal); N39.0 Urinary tract infection, site not specified; F32.9 Major depressive disorder, single episode, unspecified; E11.9 Type 2 diabetes mellitus without complications; E78.5 Hyperlipidemia, unspecified; I10 Essential (primary) hypertension; E07.9 Disorder of thyroid, unspecified; Z79.890 Hormone replacement therapy; Z79.84 Long term (current) use of oral hypoglycemic drugs; Z79.82 Long term (current) use of aspirin; Z79.899 Other long term (current) drug therapy
CPT/HCPCS: 36415; 71046; 72100; 80053; 81001; 82150; 83605; 83690; 85025; 87086; 99283

== ENCOUNTER → 2019-10-05 | Outpatient (CLI) | payer MEDICARE, OTHER ==
--- NOTE | 2019-10-05 11:30 | FL ---
Barium swallow HISTORY: Dysphasia 1 minute 10 seconds fluoroscopy time, 75 images obtained Patient was given high density barium to drink. 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 Tertiary esophageal contractions were identified. No gastroesophageal reflux or hiata l hernia was identified. There is no laryngeal penetration or aspiration. IMPRESSION: Findings suggestive of a stricture in the cervical esophagus.
== END | disposition home or self-care (01) ==
LOC: RADXRMAIN 08:18
PROVIDERS: ATTEND Otolaryngology
DX: R13.10 Dysphagia, unspecified (principal)
CPT/HCPCS: 74220

== ENCOUNTER → 2019-12-05 | Outpatient (CLI) | payer MEDICARE, OTHER ==
--- NOTE | 2019-12-05 19:14 | BD ---
EXAMINATION TYPE: Axial Bone Density DATE OF EXAM: 12/05/2019 COMPARISON: 05/13/2017 CLINICAL HISTORY: Post menopausal screening Height: 59.2 IN Weight: 214 LBS FRAX RISK QUESTIONS: Secondary Osteoporosis: 3. Menopause before 45: YES TOTAL HYST AGE 34 RISK FACTORS HISTORY OF: Active: YES Postmenopausal woman: TOTAL HYST AGE 34 Take estrogen and/or progesterone medications: NOT NOW How long: AGE 35-37 Lost more than 2 inches in height since high school: YES 3" MEDICATIONS: Thyroid Medications: YES Which medication: Levothyroxine How Lon+ YEARS Additional Medications: CALCIUM, VIT D, LEVOTHYROXINE, GLIPIZIDE, CENTRUM SILVER, PROPRANOLOL, LISINO PRIL, SIMVASTATIN, CITALOPRAM, ASPIRIN, CARBIDOPA EXAM MEASUREMENTS: Bone mineral densitometry was performed using the [employer] System. Bone mineral density as measured about the Lumbar spine is: ----- L1-L4(G/cm2): 1.043 T Score Values are as follows: ----- L2: -1.1 ----- L3: -1.6 ----- L4: -0.2 ----- L1-L4: -1.1 Bone mineral density has: Decreased -4.3% since study of: 05/13/2017 Bone mineral density about the R hip (g/cm2): 0.695 Bone mineral density about the L hip (g/cm2): 0.734 T Score values are as follows: -----R Neck: -2.5 -----L Neck: -2.2 -----R Total: -1.1 -----L Total: -1.1 Bone mineral density has: Increased 1.4% since study of: 05/13/2017 IMPRESSION: Osteoporosis (T Score less than -2.5). There is increased fracture risk and therapy is usually indicated based on age. Re-Screen 1-2 years. NOTE: T-SCORE=SD OF THE YOUNG ADULT MEAN.
--- NOTE | 2019-12-06 13:58 | MM ---
Reason for exam: screening (asymptomatic). Last mammogram was performed 1 year and 4 months ago. History: Patient is postmenopausal. Benign MG stereo VAD BX LT of the left breast, July 31, 2014. Physical Findings: A clinical breast exam by your physician is recommended on an annual basis and results should be correlated with mammographic findings. MG 3D Screening Mammo W/Cad Bilateral CC and MLO view(s) were taken. Prior study comparison: August 12, 2018, bilateral MG 3d screening mammo w/cad. May 06, 2017, bilateral MG 3d screening mammo w/cad. The breast tissue is heterogeneously dense. This may lower the sensitivity of mammography. Focal asymmetry left CC is stable. No significant changes when compared with prior studies. ASSESSMENT: Benign, BI-RAD 2 RECOMMENDATION: Routine screening mammogram of both breasts in 1 year.
== END | disposition home or self-care (01) ==
LOC: RADMAMWWP 12:26
PROVIDERS: ATTEND Family Medicine
DX: Z12.31 Encounter for screening mammogram for malignant neoplasm of breast (principal); M81.0 Age-related osteoporosis without current pathological fracture
CPT/HCPCS: 77063; 77067; 77080

== ENCOUNTER → 2021-02-12 | Outpatient (CLI) | payer MEDICARE, OTHER ==
--- NOTE | 2021-02-18 11:19 | MM ---
Reason for exam: screening (asymptomatic). Last mammogram was performed 1 year and 2 months ago. History: Patient is postmenopausal. Benign MG stereo VAD BX LT of the left breast, July 31, 2014. Physical Findings: A clinical breast exam by your physician is recommended on an annual basis and results should be correlated with mammographic findings. MG 3D Screening Mammo W/Cad Bilateral CC and MLO view(s) were taken. Prior study comparison: December 05, 2019, bilateral MG 3d screening mammo w/cad. August 12, 2018, bilateral MG 3d screening mammo w/cad. There are scattered fibroglandular densities. Previous mammotome biopsy in the left breast. There is chronic nodularity bilaterally. No significant changes when compared with prior studies. ASSESSMENT: Benign, BI-RAD 2 RECOMMENDATION: Routine screening mammogram of both breasts in 1 year.
== END | disposition home or self-care (01) ==
LOC: RADMAMWWP 13:12
PROVIDERS: ATTEND Family Medicine
DX: Z12.31 Encounter for screening mammogram for malignant neoplasm of breast (principal); Z78.0 Asymptomatic menopausal state
CPT/HCPCS: 77063; 77067

== ENCOUNTER 2021-04-27 21:18 | Emergency (ER) | payer MEDICARE, OTHER ==
[2021-04-27 21:27] VITALS: RESP 18; TEMP 98.2
[2021-04-27] MEDS ORDERED: HYDROmorphone 1 MG/ML 1 ML SYRINGE IM STA (22:01)
--- NOTE | 2021-04-27 22:01 | ED ---
Fall HPI - General Chief Complaint: Fall Stated Complaint: Fall Time Seen by Provider: 04/27/21 21:24 Source: patient, EMS, RN notes reviewed, old records reviewed Mode of arrival: EMS Limitations: no limitations - History of Present Illness Initial Comments: This is a 75-year-old female to the emergency department today. Patient resents with just a mechanical fall. Patient states she tripped over a rug at her house. Landing on her right side right knee right chest right shoulder) patient has maintained pain noted to be in her right shoulder. Unable to move right arm. Patient is on blood thinners. Did not hit her head with no neck pain or headache, no loss of consciousness. Patient currently without headache chest pain shortness of breath or abdominal pain. 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 Place Fall Occurred: home Loss of Consciousness: none Prolonged Down Time?: no Symptoms Prior to Fall: none Location - Extremities: Right: Shoulder, Thigh, Knee, Leg Severity: severe Severity scale (1-10): 7 Quality: sharp Context: tripped/slipped Associated Symptoms: denies - Related Data Home Medications Medication Instructions Recorded Confirmed Cholecalciferol [Vitamin D3 (25 5,000 unit PO HS 06/12/15 09/03/19 Mcg = 1000 Iu)] Citalopram Hydrobromide [CeleXA] 20 mg PO HS 06/12/15 09/03/19 Multivit-Min/Iron/Folic/Lutein 1 each PO HS 06/12/15 09/03/19 [Centrum Silver Women Tablet] Omeprazole 20 mg PO 06/12/15 09/03/19 Simvastatin [Zocor] 20 mg PO HS 06/12/15 09/03/19 glipiZIDE [Glucotrol XL] 2.5 mg PO AC-BRKFST 06/12/15 09/03/19 Aspirin 325 mg PO DAILY 09/03/19 09/03/19 Carbidopa/Levodopa [Sinemet 25-100 1 tab PO DAILY 09/03/19 09/03/19 mg] Levothyroxine Sodium 88 mcg PO DAILY 09/03/19 09/03/19 Lisinopril [Prinivil] 10 mg PO DAILY 07/11/20 07/11/20 Propranolol HCl 80 mg PO DAILY 09/03/19 09/03/19 Previous Rx's Medication Instructions Recorded Nitrofurantoin Monohyd/M-Cryst 100 mg PO Q12HR #14 cap 09/03/19 [Macrobid] Allergies Allergy/AdvReac Type Severity Reaction Status Date / Time No Known Allergies Allergy Verified 09/03/19 11:21 Review of Systems ROS Statement: Those systems with pertinent positive or pertinent negative responses have been documented in the HPI. ROS Other: All systems not noted in ROS Statement are negative. Past Medical History Past Medical History: Chest Pain / Angina, Diabetes Mellitus, GERD/Reflux, Hyperlipidemia, Hypertension, Thyroid Disorder Additional Past Medical History / Comment(s): Increased SOB with activity,talking and rolling over in bed,Aortic stenosis, parkinson's History of Any Multi-Drug Resistant Organisms: None Reported Past Surgical History: Appendectomy, Cholecystectomy, Hysterectomy, Orthopedic Surgery, Tonsillectomy Additional Past Surgical History / Comment(s): right ft spurs removed; BILATERAL HAND SURGERY, cataract removal-BILATERAL Past Anesthesia/Blood Transfusion Reactions: No Reported Reaction Additional Past Anesthesia/Blood Transfusion Reaction / Comment(s): NO hx blood transfusion Past Psychological History: Depression Smoking Status: Never smoker Past Alcohol Use History: None Reported Past Drug Use History: None Reported - Past Family History Mother Family Medical History: No Reported History Additional Family Medical History / Comment(s): growths around the kidney- removed Father Family Medical History: Chest Pain / Angina, Coronary Artery Disease (CAD) Additional Family Medical History / Comment(s): CABG ( from complications od ), MRSA (post CABG in [place]) General Exam General appearance: alert, in no apparent distress Head exam: Present: atraumatic, normocephalic, normal inspection Eye exam: Present: normal appearance, PERRL, EOMI. Absent: scleral icterus, conjunctival injection, periorbital swelling ENT exam: Present: normal exam, mucous membranes moist Neck exam: Present: normal inspection. Absent: tenderness, meningismus, lymphadenopathy Respiratory exam: Present: normal lung sounds bilaterally. Absent: respiratory distress, wheezes, rales, rhonchi, stridor Cardiovascular Exam: Present: regular rate, normal rhythm, normal heart sounds. Absent: systolic murmur, diastolic murmur, rubs, gallop, clicks GI/Abdominal exam: Present: soft, normal bowel sounds. Absent: distended, tenderness, guarding, rebound, rigid Extremities exam: Present: normal inspection, tenderness (Significant tenderness to right shoulder area), normal capillary refill. Absent: full ROM, pedal edema, joint swelling, calf tenderness Back exam: Present: normal inspection Neurological exam: Present: alert, oriented X3, CN II-XII intact Psychiatric exam: Present: normal affect, normal mood Skin exam: Present: warm, dry, intact, normal color. Absent: rash Course Vital Signs 04/27/21 04/27/21 21:19 23:50 Temperature 98.2 F Pulse Rate 65 87 Respiratory 18 18 Rate Blood Pressure 199/93 163/85 O2 Sat by Pulse 92 L 96 Oximetry - Reevaluation(s) Reevaluation #1: Medical record is reviewed Patient symptoms are improved here in the ER Patient feels comfortable for discharge home Medical Decision Making - Medical Decision Making 75 female to the emergency department for mechanical fall patient tripped over a rug in her house. Landing on right shoulder right humerus fracture, fractures alert a sling and patient can be discharged home - Radiology Data Radiology results: report reviewed (Chest x-ray pelvis x-ray right hip right knee x-ray negative for acute disease. X-ray right shoulder shows positive impacted proximal humerus fracture), image reviewed Disposition Clinical Impression: Fall, Closed right humeral fracture, Proximal humerus fracture Disposition: HOME SELF-CARE Condition: Good Instructions (If sedation given, give patient instructions): Fall Prevention for Older Adults (ED), Proximal Humerus Fracture (ED) Is patient prescribed a controlled substance at d/c from ED?: No Referrals: Ibis Ly MD [Primary Care Provider] - 1-2 days Sylvester Peñaloza MD [STAFF PHYSICIAN] - 1-2 days
--- NOTE | 2021-04-27 22:42 | XR ---
EXAMINATION TYPE: XR chest 1V portable DATE OF EXAM: 04/27/2021 COMPARISON: 09/03/2019 HISTORY: Chest pain TECHNIQUE: Single view FINDINGS: There is no heart failure nor confluent pneumonic infiltrate. Costophrenic angles are clear . Bony thorax is intact IMPRESSION: No active cardiopulmonary disease. Normal heart. No change.
--- NOTE | 2021-04-27 22:43 | XR ---
EXAMINATION TYPE: XR shoulder complete RT DATE OF EXAM: 04/27/2021 COMPARISON: NONE HISTORY: Fall. Pain TECHNIQUE: 3 views FINDINGS: There is a comminuted slightly impacted fracture of the humeral neck. There is no dislocati on. There is displacement of the fragments up to 1 cm. Scapula appears intact. IMPRESSION: Acute comminuted humeral neck fracture with impaction.
--- NOTE | 2021-04-27 22:44 | XR ---
EXAMINATION TYPE: XR humerus RT DATE OF EXAM: 04/27/2021 COMPARISON: NONE HISTORY: All. Pain TECHNIQUE: 2 views FINDINGS: There is an impacted comminuted humeral neck fracture. No dislocation. The elbow joint appe ars anatomic. IMPRESSION: Acute humeral neck impacted comminuted fracture.
--- NOTE | 2021-04-27 22:58 | XR ---
EXAMINATION TYPE: XR knee complete RT DATE OF EXAM: 04/27/2021 COMPARISON: NONE HISTORY: Pain TECHNIQUE: 3 views FINDINGS: There is no sign of fracture nor dislocation. There is subcutaneous edema anterior to the p atella. Patella is intact. Joint spaces are fairly normal. IMPRESSION: Negative right knee exam. No fracture seen.
--- NOTE | 2021-04-27 22:59 | XR ---
EXAMINATION TYPE: XR Hip RT and AP Pelvis DATE OF EXAM: 04/27/2021 COMPARISON: NONE HISTORY: Pain TECHNIQUE: 3 views FINDINGS: Pelvic ring is intact. Proximal right femur and hip joint are intact. Exam limited by patie nt size. Sacroiliac joints are intact. IMPRESSION: No acute abnormality of the pelvis and right hip.
[2021-04-27] MEDS ORDERED: Acetaminophen-Codeine 300-30mg TAB PO STA (23:50)
[2021-04-27] MEDS ORDERED: ACET/COD 300 MG/30 MG STARTER PACK 6 TAB BTL PO STA (23:50)
[2021-04-27 23:51] VITALS: BP 163/85; PULSE 87
== END 2021-04-28 00:16 | disposition home or self-care (01) ==
LOC: EC 21:18
DX: S42.201A Unspecified fracture of upper end of right humerus, initial encounter for closed fracture (principal); E11.9 Type 2 diabetes mellitus without complications; I10 Essential (primary) hypertension; E78.5 Hyperlipidemia, unspecified; K21.9 Gastro-esophageal reflux disease without esophagitis; G20 Parkinson's disease; F32.A Depression, unspecified; Z79.84 Long term (current) use of oral hypoglycemic drugs; Z79.82 Long term (current) use of aspirin; Z79.890 Hormone replacement therapy; Z79.899 Other long term (current) drug therapy; W01.0XXA Fall on same level from slipping, tripping and stumbling without subsequent striking against object, initial encounter; Y92.009 Unspecified place in unspecified non-institutional (private) residence as the place of occurrence of the external cause
CPT/HCPCS: 73502; 73030; 73060; 73562; 71045; 99284; 96372; J1170

== ENCOUNTER → 2021-04-29 | Outpatient (CLI) | payer MEDICARE | END | disposition home or self-care (01) | LOC: LABPAT 12:55 | PROVIDERS: ATTEND Orthopaedic Surgery | DX: Z01.812 Encounter for preprocedural laboratory examination (principal); S42.241A 4-part fracture of surgical neck of right humerus, initial encounter for closed fracture; Z22.322 Carrier or suspected carrier of Methicillin resistant Staphylococcus aureus; Y99.9 Unspecified external cause status | CPT/HCPCS: 87070 ==

== ENCOUNTER 2021-05-07 07:41 | Day surgery (SDC) | payer MEDICARE ==
[2021-05-03 12:47] VITALS: BMI 39.1
--- NOTE | 2021-05-06 10:50 | HP ---
HISTORY AND PHYSICAL CHIEF COMPLAINT: Right shoulder pain. HISTORY OF PRESENT ILLNESS: This patient is a 75-year-old retired female who presents with right shoulder pain after an injury on 04/27/2020 when she tripped and fell on a rug at home. She had no loss of consciousness. Initially she was seen in the hospital and placed in a sling. She denies previous injury. She notes significant pain. PAST MEDICAL HISTORY: Significant for type 2 diabetes, Parkinson's, hypothyroidism, aortic stenosis. PAST SURGICAL HISTORY: Negative. CURRENT MEDICATIONS: Hydrocodone. ALLERGIES: SHE DENIES DRUG ALLERGIES. FAMILY HISTORY: Significant for heart disease. SOCIAL HISTORY: Negative for current tobacco or alcohol use. REVIEW OF SYSTEMS: Sixteen-point review of systems otherwise reviewed and is noncontributory. PHYSICAL EXAMINATION: On examination, the patient is approximately 5 feet 2 inches, 195 pounds of endomorphic habitus. HEENT exam is nonfocal. Neck is supple. On examination of the right shoulder, she is tender about the anterior subacromial space and glenohumeral joint. She has moderate anterior swelling. Skin is intact. She has limited motion secondary to pain. She is nontender about the right elbow and wrist. Her distal neurovascular exam appears intact in the right upper extremity. X-rays from the hospital of the right shoulder were reviewed and show a displaced 4- part proximal humerus fracture. IMPRESSION: 1. Right displaced 4-part proximal humerus fracture. 2. Parkinson's disease. 3. History of aortic stenosis. 4. Hjl-zmwspvc-yhcogwogf diabetes. RECOMMENDATIONS: I talked to the patient at length regarding her condition along with treatment options. At this point she is quite symptomatic and limited because of pain. After thorough discussion, she opts to proceed with surgery. We will plan to proceed with right shoulder cemented hemiarthroplasty. Risks and benefits were discussed at length in layman's terms. MMODL / IJN: [id number] /
[~2021-05-07 07:41] MED LIST changes: +ACETAMINOPHEN TAB 500 MG TAB PO PRN; -ALPRAZolam 0.25 MG TAB PO PRN; -ASPIRIN 325 MG TAB PO ONE; -ATORVASTATIN 80 MG TAB PO STA; +DEXAMETHASONE SOD PHOSPHATE 4 MG/ML 1 ML VIAL IV ONE; +HYDROmorphone 0.5 MG/0.5 ML SYRINGE IVP PRN; +MELOXICAM 7.5 MG TAB PO PRN; -NITROGLYCERIN SL TABS 0.4 MG TAB SUBLINGUAL PRN; +ONDANSETRON 4 MG/2 ML VIAL IVP ONE; -SODIUM CHLORIDE 0.9% 1,000 ML in EMPTY BAG 1 BAG IV ONE; +TRANEXAMIC ACID IN NACL,ISO-OS 1,000 MG in SALINE 1 100ML.BAG IVPB PRN
[2021-05-07] MEDS: LACTATED RINGERS 1,000 ML IV SCH ×3 (08:55→16:59)
[2021-05-07] MEDS ORDERED: LIDOCAINE 1% (10MG/ML) FOR IV START INTRADERMA ONE (08:55)
[2021-05-07 09:08] LABS: Glucose,Whole Blood 116 mg/dL (75-99)
[2021-05-07] MEDS ORDERED: MIDAZOLAM 2 MG/2 ML VIAL IV ONE (09:15)
[2021-05-07] MEDS ORDERED: TRANEXAMIC ACID IN NACL,ISO-OS 1,000 MG/100 ML BAG ONE (09:40)
[2021-05-07] MEDS ORDERED: GLYCOPYRROLATE 0.2 MG/ML 2 ML VIAL ONE (09:40)
[2021-05-07] MEDS ORDERED: NEOSTIGMINE 1 MG/ML 10 ML VIAL ONE (09:40)
[2021-05-07] MEDS ORDERED: fentaNYL (PF) 50 MCG/ML 2 ML AMP ONE (09:40)
[2021-05-07] MEDS ORDERED: ROCURONIUM 10 MG/ML (5 ML VIAL) IV ONE (09:40)
[2021-05-07] MEDS ORDERED: PHENYLEPHRINE-0.9% NACL SYG 1,000 MCG/10 ML SYRINGE ONE (09:40)
[2021-05-07] MEDS ORDERED: SUCCINYLCHOLINE CHLORIDE 100 MG/5 ML SYR IV ONE (09:40)
[2021-05-07] MEDS ORDERED: ETOMIDATE 2 MG/ML 10 ML VIAL ONE (09:40)
[2021-05-07] MEDS ORDERED: ePHEDrine 50 MG/ML 1 ML VIAL ONE (09:40)
[2021-05-07] MEDS ORDERED: LIDOCAINE 1% INJ 10MG/ML (20 ML MDV) ONE (09:40)
[2021-05-07] MEDS ORDERED: ALBUTEROL HFA INHALER INHALATION ONE (09:40)
[2021-05-07] MEDS ORDERED: ROPIVACAINE 5 MG/ML 30 ML VIAL ONE (09:40)
--- NOTE | 2021-05-07 10:13 | P.ANPRN ---
Procedure Note - Anesthesia - Nerve Block Performed Right Interscalene Single Time Out Performed: Yes (1015) Date of Procedure: 05/07/21 Procedure Start Time: :15 Procedure Stop Time: Location of Patient: PreOp Indication: Acute Post-Operative Pain, Requested by Surgeon Sedation Type: Sedate with meaningful contact maintained Preparation: Sterile Prep Position: Sitting Catheter: None Needle Types: Pajunk Needle Gauge: 21 Ultrasound used to visualize needle placement: Yes Ultrasound used to observe medication spread: Yes Injectate: 0.5% Ropivacaine (see comment for volume) (25 ml) Blood Aspirated: No Pain Paresthesia on Injection Noted: No Resistance on Injection: Normal Image Stored and Saved: Yes Events: Uneventful and Well Tolerated (Difficulty to visualize brachial plexus trunks. Used 25 mL of the block solution.)
[2021-05-07] MEDS ORDERED: ceFAZolin 1,000 MG in SODIUM CHLORIDE 0.9% 1,000 ML IRRIGATION ONE (10:16)
[2021-05-07] MEDS ORDERED: SENNOSIDES-DOCUSATE SODIUM 1 EACH TAB PO PRN (11:29)
[2021-05-07] MEDS ORDERED: HYDROmorphone 0.5 MG/0.5 ML SYRINGE IVP PRN (11:29)
[2021-05-07] MEDS ORDERED: HYDROcodone/APAP 5-325MG 1 EACH TAB PO PRN (11:29)
[2021-05-07] MEDS ORDERED: ONDANSETRON 4 MG/2 ML VIAL IVP PRN (11:29)
[2021-05-07] MEDS ORDERED: polyethylene glycoL 3350 17 GM POWD.PACK PO PRN (11:33)
--- NOTE | 2021-05-07 11:53 | P.OP ---
Date of Procedure: 05/07/21 Preoperative Diagnosis: Displaced right 4 part proximal humerus fracture Postoperative Diagnosis: Same Procedure(s) Performed: Right shoulder cemented hemiarthroplasty Implants: [employer] FX size 8 long cemented humeral stem, size 10/0 body, 48 mm suture collar, 48 mm x 15 mm humeral head Anesthesia: danyelle BUSTAMANTE Surgeon: Sylvester Peñaloza Servicer #1: Wallace Riley Estimated Blood Loss (ml): 150 Pathology: other (Humeral head) Condition: stable Disposition: PACU Indications for Procedure: The patient is a 75-year-old female who presents with a right displaced 4 part proximal humerus fracture after a recent fall. A discussion of the risks and benefits of operative intervention versus conservative measures made with patient. With the degree of initial displacement, I recommended proceeding with surgery. Operative options were discussed to include hemiarthroplasty versus reverse total shoulder arthroplasty. She does have significant neuromuscular disease, therefore and the arthroplasty was chosen. Specific risks of the surgery to include infection, neurovascular injury, development of blood clots, possible nonunion of the tuberosities, possible instability and need for subsequent procedures was discussed. Informed consent was obtained. Operative Findings: As below Description of Procedure: The patient was brought to the operating room, and after induction of general anesthesia was placed in a beachchair position. Bony prominences were appropriately padded. The right upper extremity was prepped and draped in normal fashion per the bony outlines the acromion and coracoid process were outlined with a skin marker. A deltopectoral incision was then made lateral to the coracoid process. Skin was incised sharply. Subcutaneous tissues were divided bluntly. Electrocautery was used for hemostasis. The deltopectoral interval was identified and the cephalic vein was gently retracted laterally with the deltoid. Subdeltoid adhesions were bluntly dissected. The upper portion of the pectoralis major was released to aid in exposure. The clavipectoral fascia was opened and retracted medially. The biceps was identified and the rotator interval was opened. The biceps was tenotomized and allowed to retract distally. The greater lesser tuberosities were then dissected and tagged with #2 Ethibond suture. The humeral head was extracted. This sized most appropriately at 48 mm. The glenoid was inspected. Attention was then paid towards preparing the humeral shaft. The shaft was reamed by hand up to a size 8. There was good distal fit and chatter. The alignment clamp was placed on the humeral shaft planning on 30 of retroversion. A long size 8 humeral stem was inserted in the appropriate retroversion along with a size 10/0 body. A 48 x 15 mm trial head was placed. The shoulder was gently reduced. The tuberosities were re-approximated. I felt that adequate faith of overall height. The shoulder was gently dislocated. The trial components were removed. The final size 8 cemented humeral stem with a size 10/0 body was inserted after pressurizing the canal by hand. Excess cement was removed. Again this is placed in 30 of retroversion and maintained at the appropriate height with the clamp. Once the cement had sufficiently hardened, the clamp was then removed. A suture collar was placed and impacted. Multiple #2 Ethibond sutures were passed for reattachment of the tuberosities. The tuberosities were then reattached to each other with previously placed sutures. They were then sutured down to the suture collar. The rotator interval was closed with #2 Ethibond suture. The final construct showed adequate faith of tuberosity height and overall stabilization. The wound was irrigated with pulsatile lavage. The rotator interval was closed with interrupted 2-0 Vicryl sutures. The subcu tissues reapproximated interrupted 2-0 Vicryl sutures. The skin was reapproximated with 3-0 subcuticular Prolene suture. Steri-Strips were applied. A sterile dressing was applied in addition to a sling. The patient was awoken from general anesthesia and transferred to recovery room in fair condition. Blood loss was estimated 150 mL. No complications were incurred. Sponge and needle counts were correct at the end the case. Arnol THEODORE assisted during the major components the case to include positioning, exposure, implantation, and closure.
[2021-05-07] MEDS ORDERED: LACTATED RINGERS 1,000 ML IV ONE (13:11)
[2021-05-07] MEDS: SODIUM CHLORIDE 0.45% 1,000 ML IV SCH (14:57)
--- NOTE | 2021-05-07 14:57 | XR ---
EXAMINATION TYPE: XR shoulder limited RT DATE OF EXAM: 05/07/2021 COMPARISON: 04/27/2021 HISTORY: 75-year-old female status post right shoulder hemiarthroplasty TECHNIQUE: AP view FINDINGS: Single image shows placement of a right total shoulder arthroplasty with long humeral stem component. There is offset at the margin of the greater tuberosity and surgical neck compatible with the manuela l head fracture seen on prior exam. There is 2 mm of lateral cortical margin offset. Alignment otherw ise grossly anatomic. Scattered soft tissue air related to recent operation. IMPRESSION: 1. Interval placement of right shoulder arthroplasty. Gross anatomic alignment. 2. Known underlying humeral head fracture. The greater tuberosity component shows improved alignment with only 2 mm of lateral cortical step-off now.
[2021-05-07 16:39] LABS: Glucose,Whole Blood 193 mg/dL (75-99)
[2021-05-07 20:29] LABS: Glucose,Whole Blood 161 mg/dL (75-99)
[2021-05-07] MEDS ORDERED: CHOLECALCIFEROL 125 MCG (5000 IU) TABLET PO SCH (21:00)
[2021-05-07] MEDS ORDERED: ATORVASTATIN 10 MG TAB PO SCH (21:00)
[2021-05-07] MEDS ORDERED: PANTOPRAZOLE 40 MG TABLET PO SCH (21:00)
[2021-05-07] MEDS ORDERED: CITALOPRAM HYDROBROMIDE 20 MG TAB PO SCH (21:00)
[2021-05-07] MEDS: CARBIDOPA-LEVODOPA 25-100 MG 1 EACH TAB PO SCH (21:04)
[2021-05-08] MEDS: HYDROcodone/APAP 7.5-325MG 1 EACH TAB PO PRN ×2 (02:46→08:21)
[2021-05-08 04:46] VITALS: TEMP 98.3
[2021-05-08] MEDS: SODIUM CHLORIDE 0.45% 1,000 ML IV SCH (04:59)
[2021-05-08] MEDS ORDERED: LEVOTHYROXINE 88 MCG TAB PO SCH (06:30)
[2021-05-08 07:09] LABS: Glucose,Whole Blood 141 mg/dL (75-99)
[2021-05-08 07:32] VITALS: BP 153/81; PULSE 85; RESP 16
[2021-05-08] MEDS: CARBIDOPA-LEVODOPA 25-100 MG 1 EACH TAB PO SCH ×2 (08:41→12:36)
[2021-05-08] MEDS ORDERED: ASPIRIN 325 MG TAB PO SCH (09:00)
[2021-05-08] MEDS ORDERED: lisinopriL 10 MG TAB PO SCH (09:00)
[2021-05-08] MEDS ORDERED: PROPRANOLOL 40 MG TAB PO SCH (09:00)
[2021-05-08 10:42] LABS: Glucose,Whole Blood 162 mg/dL (75-99)
--- NOTE | 2021-05-08 11:01 | P.DS ---
Providers Date of admission: 05/07/2021 Expected date of discharge: 05/08/21 Attending physician: Sylvester Peñaloza Consults: 05/07/21 11:32 Consult Physician Routine Consulting Provider: Ibis Ly Consult Reason/Comments: Medical Management Do you want consulting provider notified?: Yes Primary care physician: Ibis Ly Hospital Course: Date of admission: 05/07/2021 Date of discharge: 05/08/2021 Admission diagnosis: Displaced right 4 part proximal humerus fracture Discharge diagnosis: Same Attending physician: Dr. Peñaloza Surgical procedures: Right shoulder cemented hemiarthroplasty Brief history: Patient is a 75-year-old female with a history of displaced right 4 part proximal humerus fracture. At this point patient has failed conservative treatment measures and has opted to proceed with a elective right shoulder cemented hemiarthroplasty. Hospital course: Details of patient's surgery can be found in operative report. Patient tolerated the procedure well and was subsequently transported to orthopedic floor. Patient's orthopeidc and medical care was provided daily. Patient had daily laboratory tests performed for evaluation of overall blood counts. Patient had daily physical therapy to include strengthening range of motion as well as education with walker ambulation. Patient was treated with Aspirin for their postoperative DVT prophylaxis during their inpatient stay. Patient was noted to have a relatively uneventful postoperative course. Patient reported satisfactory pain control with oral pain medications by postoperative day 1. Patient showed satisfactory progress with physical therapy. Patient moved steadily through the program and had no difficulty meeting the goals by postoperative day 1. Given patient's otherwise satisfactory course and having met physical therapy goals, plan is to discharge patient home on postoperative day 1. Discharge condition/disposition: Patient will be discharged home in stable condition. Discharge medications: Instructions are given on resumption of patient's normal daily medications per primary care recommendation, in addition patient will be prescribed aspirin 325 mg daily 3 weeks; patient has Aurora and tramadol at home. Discharge instructions: 1. Wound care and infection precautions, keep incision dry and covered while showering, no lotions, creams, moisturizers. No soaking, tubs, pools, hottubs. Do not scrub over the incision. 2. Nonweightbearing right upper extremity. Keep right upper extremity in sling. 3. Ice when necessary. Do not exceed 20 minutes per hour with ice pack. 4. Pain meds and anticoagulants per prescription. 5. Pain medication has potential to cause constipation. Increase oral fluid and fiber intake. Contact primary care provider if you have not had a bowel movement within 48 hours after discharge 6. No anti-inflammatory medication until discussed at first post operative visit, this including Motrin, Aleve, Mobic, Diclofenac, Aspirin. 7. Follow up in office at 2 weeks postop with Arnol Riley PA-C / Gregory Garber PA-C 8. Follow up with your primary care doctor 7-10 days after discharge. 9. Contact [facility] with any questions, . Assessment: Displaced right 4 part proximal humerus fracture Procedures: Right shoulder cemented hemiarthroplasty Patient Condition at Discharge: Good Plan - Discharge Summary Discharge Rx Participant: Yes New Discharge Prescriptions: No Action glipiZIDE [Glucotrol XL] 2.5 mg PO AC-BRKFST Cholecalciferol [Vitamin D3 (25 Mcg = 1000 Iu)] 5,000 unit PO HS Simvastatin [Zocor] 20 mg PO HS Citalopram Hydrobromide [CeleXA] 20 mg PO HS Omeprazole 20 mg PO HS Propranolol HCl 80 mg PO DAILY Lisinopril [Prinivil] 10 mg PO DAILY Levothyroxine Sodium 88 mcg PO DAILY Carbidopa/Levodopa [Sinemet 25-100 mg] 1 tab PO QID Aspirin [Sunflower Aspirin EC] 81 mg PO HS HYDROcodone/APAP 7.5-325MG [[place]ora 7.5-325] 7.5 - 325 mg PO Q6HR PRN PRN Reason: Pain Control Discharge Medication List Cholecalciferol [Vitamin D3 (25 Mcg = 1000 Iu)] 5,000 unit PO HS 06/12/15 [History] Citalopram Hydrobromide [CeleXA] 20 mg PO HS 06/12/15 [History] Omeprazole 20 mg PO HS 06/12/15 [History] Simvastatin [Zocor] 20 mg PO HS 06/12/15 [History] glipiZIDE [Glucotrol XL] 2.5 mg PO AC-BRKFST 06/12/15 [History] Carbidopa/Levodopa [Sinemet 25-100 mg] 1 tab PO QID 09/03/19 [History] Levothyroxine Sodium 88 mcg PO DAILY 09/03/19 [History] Lisinopril [Prinivil] 10 mg PO DAILY 09/03/19 [History] Propranolol HCl 80 mg PO DAILY 09/03/19 [History] Aspirin [Sunflower Aspirin EC] 81 mg PO HS 05/07/21 [History] HYDROcodone/APAP 7.5-325MG [Aurora 7.5-325] 7.5 - 325 mg PO Q6HR PRN 05/07/21 [History] Follow up Appointment(s)/Referral(s): Gregory Garber, RUSTAM [PHYSICIAN DIGITAL SOLUTION ARCHITECT] - 2 Weeks Activity/Diet/Wound Care/Special Instructions: Discharge instructions: 1. Wound care and infection precautions, keep incision dry and covered while showering, no lotions, creams, moisturizers. No soaking, tubs, pools, hottubs. Do not scrub over the incision. 2. Nonweightbearing right upper extremity. Keep right upper extremity in sling. 3. Ice when necessary. Do not exceed 20 minutes per hour with ice pack. 4. Pain meds and anticoagulants per prescription. 5. Pain medication has potential to cause constipation. Increase oral fluid and fiber intake. Contact primary care provider if you have not had a bowel movement within 48 hours after discharge 6. No anti-inflammatory medication until discussed at first post operative visit, this including Motrin, Aleve, Mobic, Diclofenac, Aspirin. 7. Follow up in office at 2 weeks postop with Arnol Riley PA-C / Gregory Garber PA-C 8. Follow up with your primary care doctor 7-10 days after discharge. 9. Contact [facility] with any questions, . Medications: Aspirin 325 mg daily 3 weeks; may take Aurora and tramadol at home for pain Discharge Disposition: HOME SELF-CARE
[2021-05-08 11:46] LABS: Basophils # (A) 0.03 X 10*3/uL (0.00-0.10); Basophils % (A) 0.2 %; Eosinophils # (A) 0.01 X 10*3/uL (0.04-0.35); Eosinophils % (A) 0.1 %; HGB 11.3 g/dL (12.0-15.0); Immature Grans, Automated 0.4 %; Lymphocytes % (A) 20.2 %; MCH 28.5 pg (27.0-32.0); MCHC 31.4 g/dL (32.0-37.0); MCV 90.9 fL (80.0-97.0); Mean Platelet Volume 10.2 fL (9.5-12.2); Monocytes # (A) 1.31 X 10*3/uL (0.20-1.00); Monocytes % (A) 9.5 %; NRBC Per 100 WBC 0 /100 WBCS (0.0-0.0); Neutrophils # (A) 9.63 X 10*3/uL (1.80-7.70); Neutrophils % (A) 69.6 %; Platelet Count 333 X 10*3/uL (140-440); RBC 3.96 X 10*6/uL (4.10-5.20); WBC 13.84 X 10*3/uL (4.50-10.00)
--- NOTE | 2021-05-08 11:52 | P.CONS ---
History of Present Illness - Reason for Consult Consult date: 05/08/21 - History of Present Illness HISTORY OF PRESENT ILLNESS This is a 85-year-old female patient of Dr. Ly with past medical history of hypertension, hyperlipidemia, diabetes mellitus type 2, hypothyroidism, gastroesophageal reflux disease, aortic stenosis, Parkinson's disease. Patient has been brought into the hospital under the care of Dr. Peñaloza status post right shoulder cemented hemiarthroplasty due to displaced right four-part proximal humerus fracture. Patient had a recent fall and presented to orthopedics for surgical intervention. She is seen today postop day #1. She was afebrile, heart rate in the 80s, blood pressure initially 194/86, pulse ox 96% on room air. Patient was on a simple mask at 8 L for brief period of time yesterday. Blood pressure is now 153/81. Pulse ox is 92% on room air. Capillary blood glucose running between 116 and 193. Incentive spirometry added. Occasional reconciliation has been reviewed. REVIEW OF SYSTEMS Constitutional: No fever, no chills, no night sweats. No weight change. Reports weakness, reports fatigue. No daytime sleepiness. EENT: No headache. No blurred vision or double vision, no loss of vision. No loss of Hearing, no ringing in the ears, no dizziness. No nasal drainage or congestion. No epistaxis. No sore throat. Lungs: No shortness of breath, cough, no sputum production. No wheezing. Cardiovascular: No chest pain, no lower extremity edema. Reports palpitations. No paroxysmal nocturnal dyspnea. No orthopnea. No lightheadedness or dizziness. No syncopal episodes. Abdominal: No abdominal pain. No nausea, vomiting. No diarrhea. No constipation. No bloody or tarry stools.. No loss of appetite. Genitourinary: No dysuria, increased frequency, urgency. No urinary retention. Musculoskeletal: No myalgias. No muscle weakness, no gait dysfunction, no frequent falls. No back pain. No neck pain. Integumentary: No wounds, no lesions. No rash or pruritus. No unusual bruising. No change in hair or nails. Neurologic: No aphasia. No facial droop. No change in mentation. No head injury. No headache. No paralysis. No paresthesia. Psychiatric: No depression. No anxiety. Endocrine: No abnormal blood sugars. No weight change. SOCIAL HISTORY She is a lifelong nonsmoker, no alcohol use, no marijuana or illicit drug use. She lives at home with her . She does not utilize walker or cane at home. FAMILY HISTORY Mother is alive with no major medical problems. Father at age 66 from a myocardial infarction. Patient has 3 brothers. One brother has history of coronary artery disease status post stents. Patient has 2 children with no major medical problems. PHYSICAL EXAMINATION Gen: This is an 75-year-old female patient appears to be in no acute distress. No respiratory distress is noted HEENT: Head is atraumatic, normocephalic. Pupils equal, round. Sclerae is anicteric. NECK: Supple. No JVD. No lymphadenopathy. No thyromegaly. LUNGS: Clear to auscultation. No wheezes or rhonchi. No intercostal retractions. HEART: Regular rate and rhythm. No murmur. ABDOMEN: Soft. Bowel sounds are present. No masses. No tenderness. EXTREMITIES: No pedal edema. No calf tenderness. NEUROLOGICAL: Patient is awake, alert and oriented x3. Cranial nerves 2 through 12 are grossly intact. ASSESSMENT AND PLAN 1. Displaced right four-part proximal humerus fracture status post right shoulder cemented hemiarthroplasty 05/07. Patient is scheduled for discharge home. Continue [place] as needed for pain, aspirin for DVT prophylaxis. 2. Hypertension. Continue lisinopril 10 mg daily, propranolol 80 mg daily. 3. Hyperlipidemia. Continue simvastatin 20 mg at bedtime. 4. Hypothyroidism. Continue levothyroxine 80 g daily. 5. Gastroesophageal reflux disease. Continue omeprazole 1 mg at bedtime. 6. History of aortic stenosis, stable. 7. Vitamin D deficiency. Continue supplement. 8. Recurrent depression and generalized anxiety disorder. Continue Celexa 20 g at bedtime. DISCHARGE PLAN Home without Home Care Impression and plan of care have been directed as dictated by the signing physician. Zulay Abdi nurse practitioner acting as scribe for signing physician. Past Medical History Past Medical History: Chest Pain / Angina, Diabetes Mellitus, GERD/Reflux, Hyperlipidemia, Hypertension, Neurologic Disorder, Thyroid Disorder Additional Past Medical History / Comment(s): SOB with activity, talking and rolling over in bed at times, Aortic Stenosis, Parkinson's. History of Any Multi-Drug Resistant Organisms: None Reported Past Surgical History: Appendectomy, Cholecystectomy, Hysterectomy, Orthopedic Surgery, Tonsillectomy Additional Past Surgical History / Comment(s): Right foot spurs removed, bilateral hand surgery, bilateral cataract removal. Past Anesthesia/Blood Transfusion Reactions: No Reported Reaction Additional Past Anesthesia/Blood Transfusion Reaction / Comm: No hx blood transfusion. Past Psychological History: Anxiety, Depression Additional Psychological History / Comment(s): was taking celexa started after 1st , and now 2nd has & she is trying to cut down, pt ws advised to consult dr prior to abruptly stopping Smoking Status: Never smoker Past Alcohol Use History: None Reported Past Drug Use History: None Reported - Past Family History Mother Family Medical History: No Reported History Additional Family Medical History / Comment(s): Growths around the kidney- removed. Unsure if cancerous. Father Family Medical History: Chest Pain / Angina, Coronary Artery Disease (CAD) Additional Family Medical History / Comment(s): CABG ( from complications of), MRSA (post CABG in [place]) Brother(s) Family Medical History: Deep Vein Thrombosis (DVT) Medications and Allergies Home Medications Medication Instructions Recorded Confirmed Type Cholecalciferol [Vitamin D3 (25 5,000 unit PO HS 06/12/15 05/07/21 History Mcg = 1000 Iu)] Citalopram Hydrobromide [CeleXA] 20 mg PO HS 06/12/15 05/07/21 History Omeprazole 20 mg PO HS 06/12/15 05/07/21 History Simvastatin [Zocor] 20 mg PO HS 06/12/15 05/07/21 History glipiZIDE [Glucotrol XL] 2.5 mg PO AC-BRKFST 06/12/15 05/07/21 History Carbidopa/Levodopa [Sinemet 25-100 1 tab PO QID 09/03/19 05/07/21 History mg] Levothyroxine Sodium 88 mcg PO DAILY 09/03/19 05/07/21 History Lisinopril [Prinivil] 10 mg PO DAILY 09/03/19 05/07/21 History Propranolol HCl 80 mg PO DAILY 09/03/19 05/07/21 History HYDROcodone/APAP 7.5-325MG [[place] 7.5 - 325 mg PO Q6HR PRN 05/07/21 05/07/21 History 7.5-325] Aspirin 325 mg PO DAILY #21 tab 05/08/21 Rx Sennosides-Docusate Sodium 2 each PO HS PRN tab 05/08/21 Rx [Senokot-S] Allergies Allergy/AdvReac Type Severity Reaction Status Date / Time No Known Allergies Allergy Verified 05/07/21 08:26 Physical Exam Vitals: Vital Signs Temp Pulse Resp BP Pulse Ox 05/08/21 07:29 98.3 F 85 16 153/81 92 L 05/08/21 04:00 98.3 F 84 17 152/72 91 L 05/08/21 01:04 98.9 F 100 20 113/67 95 05/07/21 20:00 98.0 F 109 H 17 123/72 94 L 05/07/21 19:55 17 05/07/21 14:00 98.5 F 105 H 17 134/83 95 05/07/21 13:37 91 16 168/71 94 L 05/07/21 13:07 94 16 170/82 92 L 05/07/21 12:52 94 16 172/86 91 L 05/07/21 12:37 91 16 152/70 91 L 05/07/21 12:22 88 16 154/77 91 L 05/07/21 12:07 88 16 153/78 93 L 05/07/21 11:52 97.6 F 82 10 L 160/74 95 05/07/21 09:30 80 16 164/71 93 L 05/07/21 08:55 98.2 F 74 16 194/86 96 Intake and Output 05/07/21 05/08/21 05/08/21 22:59 06:59 14:59 Intake Total 900 Balance 900 Intake: Intake, IV Titration 600 Amount Sodium Chloride 0.45% 1, 500 000 ml @ 75 mls/hr IV . [id number] [facility] Rx#:[id number] ceFAZolin 2 gm In Sodium 100 Chloride 0.9% 50 ml @ 100 mls/hr IVPB ONCE PRN Rx# :[id number] Oral 300 Other: # Voids 2 5 # Bowel Movements 0 Weight 97.8 kg Results CBC & Chem 7: 05/08/21 07:34 Labs: Abnormal Lab Results - Last 24 Hours (Table) 05/07/21 05/07/21 05/07/21 Range/Units 08:57 16:38 20:27 POC Glucose (mg/dL) 116 H 193 H 161 H (75-99) mg/dL 05/08/21 Range/Units 07:08 POC Glucose (mg/dL) 141 H (75-99) mg/dL
[2021-05-08] MEDS: LACTATED RINGERS 1,000 ML IV SCH (12:35)
--- NOTE | 2021-05-08 13:05 | P.PN ---
Subjective Progress Note Date: 05/08/21 Principal diagnosis: Displaced right 4 part proximal humerus fracture Patient was seen at bedside this morning resting comfortably with sling over right upper extremity and dressing on right shoulder. Patient states she has been up and about walking since surgery yesterday. Patient says she is in moderate pain in the right shoulder. She says she is ready to go home. Patient says she has not had bowel movement yet, however, patient says she has been p assing gas. Patient denies numbness/tingling in the right arm. Patient denies chest pain, fever, chest breath, nausea, vomiting, change in vision, loss of bowel/bladder control. Objective - Vital Signs Vital signs: Vital Signs Temp 98.3 F 05/08/21 07:29 Pulse 85 05/08/21 07:29 Resp 16 05/08/21 07:29 BP 153/81 05/08/21 07:29 Pulse Ox 92 L 05/08/21 07:38 Intake & Output 05/07/21 05/08/21 05/08/21 18:59 06:59 18:59 Intake Total 1026 900 Output Total 150 Balance 876 900 Weight 97.8 kg Intake: IV 1026 Intake, IV Titration 600 Amount Sodium Chloride 0.45% 1, 500 000 ml @ 75 mls/hr IV . [id number] [facility] Rx#:[id number] ceFAZolin 2 gm In Sodium 100 Chloride 0.9% 50 ml @ 100 mls/hr IVPB ONCE PRN Rx# :[id number] Oral 300 Output: Estimated Blood Loss 150 Other: Voiding Method Toilet # Voids 3 5 # Bowel Movements 0 - Exam Right shoulder: Incision is clean, dry, and intact. The Steri-Strips and dressing are in good condition. There is a moderate amount of ecchymosis surrounding the incision and near the axilla There is minimal soft tissue swelling around incision. Patient has good range of motion in the right wrist in flexion extension. Radial pulse 2+, intact bilaterally. Calf is soft, no tenderness with pal pation. Plantar flexion, dorsiflexion, EHL, FHL are intact. Sensory exam to light touch throughout the extremity is intact, dorsal pedis pulses 2+. - Labs CBC & Chem 7: 05/08/21 07:34 Labs: Abnormal Lab Results - Last 24 Hours (Table) 05/07/21 05/07/21 05/08/21 Range/Units 16:38 20:27 07:08 POC Glucose (mg/dL) 193 H 161 H 141 H (75-99) mg/dL 05/08/21 Range/Units 10:40 POC Glucose (mg/dL) 162 H (75-99) mg/dL Assessment and Plan Assessment: Displaced right 4 part proximal humerus fracture Postoperative day 1 status post right shoulder hemiarthroplasty Plan: 1. Displaced right 4 part proximal humerus fracture - shoulder surgery performed yesterday, 05/07/2021 - right shoulder hemiarthroplasty. Patient stable bedside this morning. Plan discharge home today 2. Appreciate medical management 3. Pain management - [place]; Dilaudid only if necessary 4. DVT prophylaxis - aspirin 325 mg daily 3 weeks 5. GI prophylaxis - Colace 6. PT/OT - nonweightbearing right upper extremity keep right upper extremity in sling 7. Discharge planning - discharge home today Time with Patient: Less than 30
== END 2021-05-08 14:16 | disposition home or self-care (01) ==
LOC: OR 07:41 → 4SSUR 11:40 → OR 05-08 14:16
PROVIDERS: ATTEND Orthopaedic Surgery
DX: S42.201A Unspecified fracture of upper end of right humerus, initial encounter for closed fracture (principal); W01.0XXA Fall on same level from slipping, tripping and stumbling without subsequent striking against object, initial encounter; I10 Essential (primary) hypertension; E11.65 Type 2 diabetes mellitus with hyperglycemia; E03.9 Hypothyroidism, unspecified; I35.0 Nonrheumatic aortic (valve) stenosis; E78.5 Hyperlipidemia, unspecified; G20 Parkinson's disease; Z90.710 Acquired absence of both cervix and uterus; Z90.49 Acquired absence of other specified parts of digestive tract; Z78.0 Asymptomatic menopausal state; I71.2 Thoracic aortic aneurysm, without rupture; I08.3 Combined rheumatic disorders of mitral, aortic and tricuspid valves; Z98.890 Other specified postprocedural states; Z79.84 Long term (current) use of oral hypoglycemic drugs; Z79.890 Hormone replacement therapy; Z79.899 Other long term (current) drug therapy; Z79.82 Long term (current) use of aspirin; Z79.891 Long term (current) use of opiate analgesic
CPT/HCPCS: 64415; 76942; 88305; 85025; 88311; 73020; 23470; C1713; C1776; J2250; J1100; J2710; J0690 ×3; J2405; J2001; J3010; J2795; J2370; J0330; J1170

== ENCOUNTER → 2022-09-04 | Outpatient (CLI) | payer MEDICARE ==
[2022-09-04 14:25] LABS: African American GFR (CKD) >90 (>60 ml/min/1.73 sqM); Blood Urea Nitrogen 14 mg/dL (7-17); Non-African American GFR(CKD) >90 (>60 ml/min/1.73 sqM)
--- NOTE | 2022-09-04 16:48 | CT ---
EXAMINATION TYPE: CT angio chest CT DLP: 1081.60 mGycm, Automated exposure control for dose reduction was used. DATE OF EXAM: 09/04/2022 3:45 PM COMPARISON: CT chest 04/02/2022, 08/01/2019 CLINICAL INDICATION:Female, 76 years old with history of I35.0; Thoracic aortic aneurysm w/o rupture TECHNIQUE/CONTRAST: CTA scan of the thorax is performed before and with IV Contrast, patient injected with 100 mL of Isov ue 370, pulmonary embolism protocol. MIP images are created and reviewed. FINDINGS: Pulmonary Artery: There is no evidence for a filling defect within the pulmonary vasculature to sugge st acute pulmonary embolism. The pulmonary artery is of normal size. Lungs/Pleura: No evidence of focal consolidation, pleural effusion or pneumothorax. Stable scattered pulmonary nodules the largest within the right lower lobe measuring up to 6 mm (series 5, image 31). Additional example includes a right lower lobe stable 5 mm pulmonary nodule (series 5, image 27). No new or enlarging pulmonary nodules. Airway: Large airways are patent. Heart: Mild cardiomegaly. No pericardial effusion. Mild coronary tear calcifications. Aortic valvular calcifications. Vasculature: Stable ascending thoracic aortic aneurysm measuring up to 4.7 cm, previously 4.7 cm. Pro ximal abdominal aorta at the level of the hiatus measures up to 2.2 cm. Bovine arch configuration. Mediastinum: No gross evidence of adenopathy. Musculoskeletal: No acute osseous abnormalities. Mild multilevel degenerative changes of the spine. R ight proximal humerus prosthesis. Soft Tissues: Unremarkable. Lower neck: No significant findings. Upper Abdomen: No significant findings. IMPRESSION: 1. Stable aneurysm dilatation of the ascending thoracic aorta measuring up to 4.7 cm. 2. Stable scattered pulmonary nodules measuring up to 6 mm. No new or enlarging pulmonary nodules. At tention on follow-up exam.
== END | disposition home or self-care (01) ==
LOC: RADCTMAIN 13:22
PROVIDERS: ATTEND Internal Medicine Interventional Cardiology
DX: I71.21 Aneurysm of the ascending aorta, without rupture (principal); I35.0 Nonrheumatic aortic (valve) stenosis; R91.8 Other nonspecific abnormal finding of lung field
CPT/HCPCS: 82565; 84520; 71275; 36415; Q9967

== ENCOUNTER 2023-02-04 06:11 | Inpatient (IN) | payer MEDICARE ==
[2023-02-04] MEDS ORDERED: ALBUTEROL HFA INHALER INHALATION STA (06:24)
--- NOTE | 2023-02-04 06:27 | ED ---
General Adult HPI - General Source: patient, RN notes reviewed, old records reviewed Mode of arrival: ambulatory Limitations: no limitations <Ronni Moran - Last Filed: 02/04/23 06:30> <Eugene Villegas - Last Filed: 02/04/23 08:21> - General Chief complaint: Shortness of Breath Stated complaint: SOB - History of Present Illness Initial comments: 77-year-old female presenting for evaluation of cough and dyspnea. Symptoms have progressed over the past several days. Patient initially had some nasal congestion, cold symptoms which had worsened over the past 12 hours. Patient came through a mandatory triage, she was hypoxic upon arrival. She states she has had some mild chest discomfort. No lower extremity pain or swelling. No history of CHF. No history of asthma or COPD. (Ronni Moran) - Related Data Home Medications Medication Instructions Recorded Confirmed Cholecalciferol [Vitamin D3 (25 5,000 unit PO HS 06/12/15 05/07/21 Mcg = 1000 Iu)] Citalopram Hydrobromide [CeleXA] 20 mg PO HS 06/12/15 05/07/21 Omeprazole 20 mg PO HS 06/12/15 05/07/21 Simvastatin [Zocor] 20 mg PO HS 06/12/15 05/07/21 glipiZIDE [Glucotrol XL] 2.5 mg PO AC-BRKFST 06/12/15 05/07/21 Carbidopa/Levodopa [Sinemet 25-100 1 tab PO QID 09/03/19 05/07/21 mg] Levothyroxine Sodium 88 mcg PO DAILY 09/03/19 05/07/21 Propranolol HCl 80 mg PO DAILY 09/03/19 05/07/21 lisinopriL [Prinivil] 10 mg PO DAILY 09/03/19 05/07/21 HYDROcodone/APAP 7.5-325MG [[place] 7.5 - 325 mg PO Q6HR PRN 05/07/21 05/07/21 7.5-325] Previous Rx's Medication Instructions Recorded Aspirin 325 mg PO DAILY #21 tab 05/08/21 Sennosides-Docusate Sodium 2 each PO HS PRN tab 05/08/21 [Senokot-S] Allergies Allergy/AdvReac Type Severity Reaction Status Date / Time No Known Allergies Allergy Verified 02/04/23 06:16 Review of Systems ROS Other: All systems not noted in ROS Statement are negative. <Ronni Moran Arnol - Last Filed: 02/04/23 06:30> ROS Other: All systems not noted in ROS Statement are negative. <NellyEugene D - Last Filed: 02/04/23 08:21> ROS Statement: Those systems with pertinent positive or pertinent negative responses have been documented in the HPI. Past Medical History Past Medical History: Chest Pain / Angina, Diabetes Mellitus, GERD/Reflux, Hyperlipidemia, Hypertension, Neurologic Disorder, Thyroid Disorder Additional Past Medical History / Comment(s): SOB with activity, talking and rolling over in bed at times, Aortic Stenosis, Parkinson's. History of Any Multi-Drug Resistant Organisms: None Reported Past Surgical History: Appendectomy, Cholecystectomy, Hysterectomy, Orthopedic Surgery, Tonsillectomy Additional Past Surgical History / Comment(s): Right foot spurs removed, bilateral hand surgery, bilateral cataract removal. Past Anesthesia/Blood Transfusion Reactions: No Reported Reaction Additional Past Anesthesia/Blood Transfusion Reaction / Comment(s): No hx blood transfusion. Past Psychological History: Anxiety, Depression Smoking Status: Never smoker Past Alcohol Use History: None Reported Past Drug Use History: None Reported - Past Family History Mother Family Medical History: No Reported History Additional Family Medical History / Comment(s): Growths around the kidney- removed. Unsure if cancerous. Father Family Medical History: Chest Pain / Angina, Coronary Artery Disease (CAD) Additional Family Medical History / Comment(s): CABG ( from complications of), MRSA (post CABG in [place]) Brother(s) Family Medical History: Deep Vein Thrombosis (DVT) <Ronni Moran Arnol - Last Filed: 02/04/23 06:30> General Exam Limitations: no limitations General appearance: alert, in distress Head exam: Present: atraumatic, normocephalic Eye exam: Present: normal appearance, PERRL Respiratory exam: Present: respiratory distress, wheezes, decreased breath sounds Cardiovascular Exam: Present: regular rate, normal rhythm GI/Abdominal exam: Present: soft. Absent: distended, tenderness, guarding Extremities exam: Present: normal inspection, normal capillary refill. Absent: pedal edema, calf tenderness Neurological exam: Present: alert, oriented X3, CN II-XII intact. Absent: motor sensory deficit Psychiatric exam: Present: anxious Skin exam: Present: warm, dry, intact. Absent: cyanosis, diaphoretic <Ronni Moran - Last Filed: 02/04/23 06:30> Course <Ronni Moran - Last Filed: 02/04/23 06:30> Vital Signs 02/04/23 02/04/23 02/04/23 06:13 06:47 07:21 Temperature 99.2 F Pulse Rate 93 80 77 Respiratory 32 H 24 20 Rate Blood Pressure 155/72 138/79 107/59 O2 Sat by Pulse 75 L 96 97 Oximetry - Reevaluation(s) Reevaluation #1: 02/04/23 0700 Patient care signed out to Dr. Villegas (Ronni Moran) Medical Decision Making <Ronni Moran - Last Filed: 02/04/23 06:30> - Lab Data Result diagrams: 02/04/23 06:32 02/04/23 06:32 <Eugene Villegas - Last Filed: 02/04/23 08:21> - Medical Decision Making Was pt. sent in by a medical professional or institution (, PA, ASSESSMENT SPECIALIST, urgent care, hospital, or retirement...) When possible be specific @ -No Did you speak to anyone other than the patient for history (EMS, parent, family, police, friend...)? What history was obtained from this source @ -No Did you review nursing and triage notes (agree or disagree)? Why? @ -I reviewed and agree with nursing and triage notes Were old charts reviewed (outside hosp., previous admission, EMS record, old EKG, old radiological studies, urgent care reports/EKG's, retirement records)? Report findings @ -No old charts were reviewed Differential Diagnosis (chest pain, altered mental status, abdominal pain women, abdominal pain men, vaginal bleeding, weakness, fever, dyspnea, syncope, headache, dizziness, GI bleed, back pain, seizure, CVA, palpatations, mental health, musculoskeletal)? @ -not applicable EKG interpreted by me (3pts min.). @ -Sinus rhythm, rate of 84, UT interval 184, QRS duration 110, QTC 399, no ST segment elevation X-rays interpreted by me (1pt min.). @ -Chest x-ray ordered, images pending CT interpreted by me (1pt min.). @ -None done U/S interpreted by me (1pt. min.). @ -None done What testing was considered but not performed or refused? (CT, X-rays, U/S, labs)? Why? @ -None What meds were considered but not given or refused? Why? @ -None Did you discuss the management of the patient with other professionals (professionals i.e. DrTomeka, PA, ASSESSMENT SPECIALIST, lab, RT, psych nurse, social media designer, cissp, teacher, information assurance officer, window caser)? Give summary @ -No Was smoking cessation discussed for >3mins.? @ -No Was critical care preformed (if so, how long)? @ -No Were there social determinants of health that impacted care today? How? (Homelessness, low income, unemployed, alcoholism, drug addiction, transportation, low edu. Level, literacy, decrease access to med. care, penitentiary, rehab)? @ -No Was there de-escalation of care discussed even if they declined (Discuss DNR or withdrawal of care, Hospice)? DNR status @ -No What co-morbidities impacted this encounter? (DM, HTN, Smoking, COPD, CAD, Cancer, CVA, ARF, Chemo, Hep., AIDS, mental health diagnosis, sleep apnea, mo rbid obesity)? @ -hypertension Was patient admitted / discharged? Hospital course, mention meds given and route, prescriptions, significant lab abnormalities, going to OR and other pertinent info. @ -[77-year-old female with progressive cough and dyspnea. Patient is hypoxic, wheezing with increased work of breathing upon arrival. She's placed on supplemental oxygen, given albuterol. Workup was initiated including chest x- ray, laboratory testing, viral swabs. Results pending at the time of sign out. (Ronni Moran) Patient's sent out to me byDr. Kyree Cisneros. Briefly, patient is a 69-year-old female presents with cold of flulike symptoms for the last couple days. She was hypoxic on arrival with a 75% oxygen saturation. Patient does have multiple comorbidities. Patient placed on supplemental oxygen with improvement of oxygenation to 97%. Laboratory evaluation reviewed. CBC, coag panel metabolic panel is within acceptable limits. Vital testing is negative. Troponin and BNP are negative. A chest x-ray is nonacute. Patient reevaluated at bedside a 25 to be in stable medical condition. She is however still persistently wheezy and requiring supplemental oxygen. Patient be admitted with constipation pulmonology for a proximal respiratory failure secondary to spasm. Diagnosis/symptom? @ -Bronchospasm, hypoxic respiratory failure Acute, or Chronic, or Acute on Chronic? @ -Acute Uncomplicated (without systemic symptoms) or Complicated (systemic symptoms)? @ -Complicated Side effects of treatment? @ -none Exacerbation, Progression, or Severe Exacerbatio] @ [n] Poses a threat to life or bodily function? @ -yes (Eugene Villegas) - Lab Data Lab Results 02/04/23 02/04/23 02/04/23 Range/Units 06:32 06:32 06:32 WBC 9.0 (3.8-10.6) k/uL RBC 4.62 (3.80-5.40) m/uL Hgb 14.0 (11.4-16.0) gm/dL Hct 42.4 (34.0-46.0) % MCV 91.6 (80.0-100.0) fL MCH 30.2 (25.0-35.0) pg MCHC 33.0 (31.0-37.0) g/dL RDW 12.9 (11.5-15.5) % Plt Count 235 (150-450) k/uL MPV 7.5 Neutrophils % 67 % Lymphocytes % 22 % Monocytes % 6 % Eosinophils % 2 % Basophils % 1 % Neutrophils # 6.0 (1.3-7.7) k/uL Lymphocytes # 2.0 (1.0-4.8) k/uL Monocytes # 0.5 (0-1.0) k/uL Eosinophils # 0.2 (0-0.7) k/uL Basophils # 0.0 (0-0.2) k/uL PT 10.0 (10.0-12.5) sec INR 0.9 (<1.2) APTT 23.8 (22.0-30.0) sec Sodium 137 (137-145) mmol/L Potassium 4.5 (3.5-5.1) mmol/L Chloride 96 L (98-107) mmol/L Carbon Dioxide 32 H (22-30) mmol/L Anion Gap 9 mmol/L BUN 21 H (7-17) mg/dL Creatinine 0.43 L (0.52-1.04) mg/dL Est GFR (CKD-EPI)AfAm >90 (>60 ml/min/1.73 sqM) Est GFR (CKD-EPI)NonAf >90 (>60 ml/min/1.73 sqM) Glucose 179 H (74-99) mg/dL Plasma Lactic Acid Rey (0.7-2.0) mmol/L Calcium 9.0 (8.4-10.2) mg/dL Magnesium 1.8 (1.6-2.3) mg/dL Total Bilirubin 0.7 (0.2-1.3) mg/dL AST 30 (14-36) U/L ALT 22 (4-34) U/L Alkaline Phosphatase 99 (38-126) U/L Troponin I (0.000-0.034) ng/mL NT-Pro-B Natriuret Pep 313 pg/mL Total Protein 6.8 (6.3-8.2) g/dL Albumin 4.1 (3.5-5.0) g/dL Influenza Type A (PCR) (Not Detectd) Influenza Type B (PCR) (Not Detectd) RSV (PCR) (Not Detectd) SARS-CoV-2 (PCR) (Not Detectd) 02/04/23 02/04/23 02/04/23 Range/Units 06:32 06:32 06:32 WBC (3.8-10.6) k/uL RBC (3.80-5.40) m/uL Hgb (11.4-16.0) gm/dL Hct (34.0-46.0) % MCV (80.0-100.0) fL MCH (25.0-35.0) pg MCHC (31.0-37.0) g/dL RDW (11.5-15.5) % Plt Count (150-450) k/uL MPV Neutrophils % % Lymphocytes % % Monocytes % % Eosinophils % % Basophils % % Neutrophils # (1.3-7.7) k/uL Lymphocytes # (1.0-4.8) k/uL Monocytes # (0-1.0) k/uL Eosinophils # (0-0.7) k/uL Basophils # (0-0.2) k/uL PT (10.0-12.5) sec INR (<1.2) APTT (22.0-30.0) sec Sodium (137-145) mmol/L Potassium (3.5-5.1) mmol/L Chloride (98-107) mmol/L Carbon Dioxide (22-30) mmol/L Anion Gap mmol/L BUN (7-17) mg/dL Creatinine (0.52-1.04) mg/dL Est GFR (CKD-EPI)AfAm (>60 ml/min/1.73 sqM) Est GFR (CKD-EPI)NonAf (>60 ml/min/1.73 sqM) Glucose (74-99) mg/dL Plasma Lactic Acid Rey 0.9 (0.7-2.0) mmol/L Calcium (8.4-10.2) mg/dL Magnesium (1.6-2.3) mg/dL Total Bilirubin (0.2-1.3) mg/dL AST (14-36) U/L ALT (4-34) U/L Alkaline Phosphatase (38-126) U/L Troponin I 0.014 (0.000-0.034) ng/mL NT-Pro-B Natriuret Pep pg/mL Total Protein (6.3-8.2) g/dL Albumin (3.5-5.0) g/dL Influenza Type A (PCR) Not Detected (Not Detectd) Influenza Type B (PCR) Not Detected (Not Detectd) RSV (PCR) Not Detected (Not Detectd) SARS-CoV-2 (PCR) Not Detected (Not Detectd) Disposition <Ronni Moran - Last Filed: 02/04/23 06:30> Decision Time: 08:21 <Eugene Villegas - Last Filed: 02/04/23 08:21> Clinical Impression: Hypoxic respiratory failure Disposition: ADMITTED IP TO THIS HOSP Condition: Fair Referrals: Ibis Ly MD [Primary Care Provider] - 1-2 days
[2023-02-04 06:41] LABS: Basophils % (A) 1 %; Eosinophils # (A) 0.2 k/uL (0-0.7); Eosinophils % (A) 2 %; HCT 42.4 % (34.0-46.0); Lymphocytes % (A) 22 %; MCH 30.2 pg (25.0-35.0); MCV 91.6 fL (80.0-100.0); Mean Platelet Volume 7.5; Monocytes # (A) 0.5 k/uL (0-1.0); Monocytes % (A) 6 %; Neutrophils % (A) 67 %; Platelet Count 235 k/uL (150-450); RBC 4.62 m/uL (3.80-5.40); RDW 12.9 % (11.5-15.5)
[2023-02-04 06:52] LABS: ALT 22 U/L (4-34); AST 30 U/L (14-36); African American GFR (CKD) >90 (>60 ml/min/1.73 sqM); Albumin 4.1 g/dL (3.5-5.0); Alkaline Phosphatase 99 U/L (38-126); Anion Gap 9 mmol/L; Blood Urea Nitrogen 21 mg/dL (7-17); Carbon Dioxide 32 mmol/L (22-30); Chloride 96 mmol/L (98-107); Glucose 179 mg/dL (74-99); Magnesium 1.8 mg/dL (1.6-2.3); Non-African American GFR(CKD) >90 (>60 ml/min/1.73 sqM); Potassium 4.5 mmol/L (3.5-5.1); Sodium 137 mmol/L (137-145); Total Bilirubin 0.7 mg/dL (0.2-1.3); Total Protein 6.8 g/dL (6.3-8.2)
[2023-02-04 06:56] LABS: INR 0.9 (<1.2); Partial Thromboplastin Time 23.8 sec (22.0-30.0)
[2023-02-04 07:01] LABS: NT-Pro-B-Type Natriuretic Pept 313 pg/mL
--- NOTE | 2023-02-04 07:47 | XR ---
EXAMINATION TYPE: XR chest 1V portable DATE OF EXAM: 02/04/2023 COMPARISON: 04/27/2021 INDICATION: Cough and congestion TECHNIQUE: Single frontal view of the chest is obtained. FINDINGS: The heart size is normal. The pulmonary vasculature is normal. The lungs are clear. IMPRESSION: 1. No acute pulmonary process.
[2023-02-04] MEDS ORDERED: NALOXONE 0.4 MG/ML 1 ML VIAL IVP PRN (08:17)
[2023-02-04] MEDS: AZITHROMYCIN 500 MG TAB PO SCH (08:49)
[2023-02-04] MEDS ORDERED: DEXTROSE 50% SYRINGE 50 ML IVP PRN ×2 (08:54)
[2023-02-04] MEDS ORDERED: predniSONE 20 MG TAB PO SCH (09:00)
--- NOTE | 2023-02-04 09:28 | P.HPIM ---
History of Present Illness This is a pleasant 77 years old female with past medical history of multiple medical problems as below. Patient presents with cold symptoms for the last few days associated with cough and nasal congestion become more short of breath today. Patient states she come to the hospital because of worsening dyspnea over the last 2 hours she's been having dry cough runny nose or throat for the last 2 days. This morning her shortness of breath was significantly worse associated with generalized weakness that required her brother to help her get into the hospital. She had back headache last night but today is minimal or completely resolved No weakness numbness blurred vision double vision. No slurred speech. No chest pain except some with coughing. No palpitation, no change in urine or bowel habits. Denies smoking alcohol or illicit drugs On admission she was hypoxic with oxygen saturation 75% on room air, currently she is saturating 97% on 4 L oxygen via nasal cannula. She is tachypneic and 32, down to 20 breaths per minute, she has low grade fever of 99.2. Labs reviewed showing unremarkable CBC, INR, BMP, liver enzymes. My virus Influenza A and type B, RSV, SARS (coronavirus) are and detected Chest x-ray: No acute process. EKG showing normal sinus rhythm at [address]-T changes. BNP is 313. On admission she was started on Zithromax and prednisone and she was admitted with pulmonary consult Review of Systems Review of systems CONSTITUTIONAL: No fever, no malaise, no fatigue. HEENT: No recent visual problems or hearing problems. Denied any sore throat. CARDIOVASCULAR: No orthopnea, PND, no palpitations, no syncope. PULMONARY: No chest wall tenderness TINAL: No diarrhea, no nausea, no vomiting, no abdominal pain. Normoactive bowel sounds. NEUROLOGICAL: No headaches, no weakness, no numbness. HEMATOLOGICAL: Denies any bleeding or petechiae. GENITOURINARY: Denies any burning micturition, frequency, or urgency. MUSCULOSKELETAL/RHEUMATOLOGICAL: Denies any joint pain, swelling, or any muscle pain. ENDOCRINE: Denies any polyuria or polydipsia. Past Medical History Past Medical History: Chest Pain / Angina, Diabetes Mellitus, GERD/Reflux, Hyperlipidemia, Hypertension, Neurologic Disorder, Thyroid Disorder Additional Past Medical History / Comment(s): SOB with activity, talking and rolling over in bed at times, Aortic Stenosis, Parkinson's. History of Any Multi-Drug Resistant Organisms: None Reported Past Surgical History: Appendectomy, Cholecystectomy, Hysterectomy, Orthopedic Surgery, Tonsillectomy Additional Past Surgical History / Comment(s): Right foot spurs removed, bilateral hand surgery, bilateral cataract removal. Past Anesthesia/Blood Transfusion Reactions: No Reported Reaction Additional Past Anesthesia/Blood Transfusion Reaction / Comment(s): No hx blood transfusion. Past Psychological History: Anxiety, Depression Smoking Status: Never smoker Past Alcohol Use History: None Reported Past Drug Use History: None Reported - Past Family History Mother Family Medical History: No Reported History Additional Family Medical History / Comment(s): Growths around the kidney- removed. Unsure if cancerous. Father Family Medical History: Chest Pain / Angina, Coronary Artery Disease (CAD) Additional Family Medical History / Comment(s): CABG ( from complications of), MRSA (post CABG in [place]) Brother(s) Family Medical History: Deep Vein Thrombosis (DVT) Medications and Allergies Home Medications Medication Instructions Recorded Confirmed Type Cholecalciferol [Vitamin D3 (25 5,000 unit PO HS 06/12/15 05/07/21 History Mcg = 1000 Iu)] Citalopram Hydrobromide [CeleXA] 20 mg PO HS 06/12/15 05/07/21 History Omeprazole 20 mg PO HS 06/12/15 05/07/21 History Simvastatin [Zocor] 20 mg PO HS 06/12/15 05/07/21 History glipiZIDE [Glucotrol XL] 2.5 mg PO AC-BRKFST 06/12/15 05/07/21 History Carbidopa/Levodopa [Sinemet 25-100 1 tab PO QID 09/03/19 05/07/21 History mg] Levothyroxine Sodium 88 mcg PO DAILY 09/03/19 05/07/21 History Propranolol HCl 80 mg PO DAILY 09/03/19 05/07/21 History lisinopriL [Prinivil] 10 mg PO DAILY 09/03/19 05/07/21 History HYDROcodone/APAP 7.5-325MG [[place] 7.5 - 325 mg PO Q6HR PRN 05/07/21 05/07/21 History 7.5-325] Aspirin 325 mg PO DAILY #21 tab 05/08/21 Rx Sennosides-Docusate Sodium 2 each PO HS PRN tab 05/08/21 Rx [Senokot-S] Allergies Allergy/AdvReac Type Severity Reaction Status Date / Time No Known Allergies Allergy Verified 02/04/23 06:16 Physical Exam Vitals: Vital Signs Temp Pulse Resp BP Pulse Ox 02/04/23 07:21 77 20 107/59 97 02/04/23 06:47 80 24 138/79 96 02/04/23 06:13 99.2 F 93 32 H 155/72 75 L Intake and Output 02/03/23 02/04/23 02/04/23 22:59 06:59 14:59 Other: Weight 88.451 kg -GENERAL: The patient is alert and oriented x3, not in any acute distress. Obese HEENT: Pupils are round and equally reacting to light. EOMI. No scleral icterus. No conjunctival pallor. Normocephalic, atraumatic. No pharyngeal erythema. No thyromegaly. CARDIOVASCULAR: S1 and S2 present. No murmurs, rubs, or gallops. -PULMONARY: Chest is limited air entry on both sides, severe expiratory wheezing , no crackles. ABDOMEN: Soft, nontender, nondistended, normoactive bowel sounds. No palpable organomegaly. MUSCULOSKELETAL: No joint swelling or deformity. EXTREMITIES: No cyanosis, clubbing, or pedal edema. NEUROLOGICAL: Gross neurological examination did not reveal any focal deficits. SKIN: No rashes. no petechiae. Results CBC & Chem 7: 02/04/23 06:32 02/04/23 06:32 Labs: Abnormal Lab Results - Last 24 Hours (Table) 02/04/23 Range/Units 06:32 Chloride 96 L (98-107) mmol/L Carbon Dioxide 32 H (22-30) mmol/L BUN 21 H (7-17) mg/dL Creatinine 0.43 L (0.52-1.04) mg/dL Glucose 179 H (74-99) mg/dL Assessment and Plan Assessment: Acute hypoxic respiratory failure with Acute tracheobronchitis is suspected Upper respiratory tract infection with sore throat, runny nose and dry cough Obesity with BMI of 35.7 Diabetes mellitus Hypertension Hyperlipidemia Hypothyroidism History of anxiety and depression Plan: Continue Zithromax Continue with prednisone Pulmonary team consult Start gentle hydration Bronchodilator and breathing treatment Labs and medication were reviewed.. Continue same treatment. Continue with symptomatic treatment. Resume home medication. Monitor labs and vitals. DVT and GI prophylaxis. Further recommendations as per clinical course of the patient DVT prophylaxis: Subcutaneous heparin GI Prophylaxis: Pepcid PT/OT: Pending Prognosis is guarded
[2023-02-04] MEDS: HEPARIN SODIUM,PORCINE 5,000 UNIT/ML 1 ML VIAL SQ SCH ×2 (09:44→21:35)
[2023-02-04] MEDS: FAMOTIDINE 20 MG/2 ML VIAL IV SCH ×2 (09:44→21:35)
[2023-02-04] MEDS: SODIUM CHLORIDE 0.45% 1,000 ML IV SCH (09:57)
[2023-02-04] MEDS: IPRATROPIUM-ALBUTEROL 3 ML NEB INHALATION SCH ×3 (11:31→20:51)
[2023-02-04 11:48] LABS: Glucose,Whole Blood 123 mg/dL (70-110)
[2023-02-04] MEDS: INSULIN ASPART (NovoLOG) 100 UNIT/ML VIAL SQ SCH ×3 (11:49→21:35)
[2023-02-04] MEDS: methylPREDNISolone SOD SUCCI 40 MG/ML 1 ML VIAL IV SCH ×2 (11:54→17:55)
--- NOTE | 2023-02-04 13:09 | P.CNPUL ---
History of Present Illness Consult date: 02/04/23 Requesting physician: Guanakito Moore Reason for consult: dyspnea Chief complaint: Shortness of breath History of present illness: This is a pleasant 77-year-old female with a known history of hypothyroidism, hypertension, hyperlipidemia, diabetes mellitus of Parkinson's disease, gastroesophageal reflux disease. Lifelong nonsmoker. No history of COPD. No history of asthma. Presented to the emergency room this morning with a 2 day history of increasing shortness of breath, cough and congestion. Chest x-ray revealed no acute pulmonary process. Count 9.0. Hemoglobin 14.0. Platelets 235. Sodium 137. Potassium 4.5. Bicarb 32. BUN 21. Creatinine 0.43. Glucose 179. Pro BNP 313. Influenza screen negative. RSV screen negative. COVID-19 screen negative. Group a strep negative. She is seen today in consultation in the emergency department. She was hypoxemic on arrival O2 sat uration at 75%. She is currently 94% on 4 L/m per nasal cannula. She is quite bronchospastic and wheezy. She's been initiated on azithromycin and DuoNeb inhalations. Heparin for DVT prophylaxis. Review of Systems REVIEW OF SYSTEMS: CONSTITUTIONAL: Denies any recent significant weight loss or weight gain. EYES: Denies change in vision. EARS, NOSE, MOUTH, THROAT: Denies headaches, denies sore throat. CARDIOVASCULAR: Denies chest pain, palpitations or syncopal episodes. RESPIRATORY: Positive for shortness of breath, cough, congestion no hemoptysis. GASTROINTESTINAL: Denies change in appetite, denies abdominal pain GENITOURINARY: Denies hematuria, denies infections. MUSKULOSKELETAL: Denies pain, denies swelling. INTEGUMENTARY: Denies rash, denies eczema. NEUROLOGICAL: Denies recent memory loss, no recent seizure activity. PSYCHIATRIC: Denies anxiety, denies depression. HEMATOLOGIC/LYMPHATIC: Denies anemia, denies enlarged lymph nodes. Past Medical History Past Medical History: Chest Pain / Angina, Diabetes Mellitus, GERD/Reflux, Hyperlipidemia, Hypertension, Neurologic Disorder, Thyroid Disorder Additional Past Medical History / Comment(s): SOB with activity, talking and rolling over in bed at times, Aortic Stenosis, Parkinson's. History of Any Multi-Drug Resistant Organisms: None Reported Past Surgical History: Appendectomy, Cholecystectomy, Hysterectomy, Orthopedic Surgery, Tonsillectomy Additional Past Surgical History / Comment(s): Right foot spurs removed, bilateral hand surgery, bilateral cataract removal. Past Anesthesia/Blood Transfusion Reactions: No Reported Reaction Additional Past Anesthesia/Blood Transfusion Reaction / Comment(s): No hx blood transfusion. Past Psychological History: Anxiety, Depression Smoking Status: Never smoker Past Alcohol Use History: None Reported Past Drug Use History: None Reported - Past Family History Mother Family Medical History: No Reported History Additional Family Medical History / Comment(s): Growths around the kidney-r emoved. Unsure if cancerous. Father Family Medical History: Chest Pain / Angina, Coronary Artery Disease (CAD) Additional Family Medical History / Comment(s): CABG ( from complications of), MRSA (post CABG in [place]) Brother(s) Family Medical History: Deep Vein Thrombosis (DVT) Medications and Allergies Home Medications Medication Instructions Recorded Confirmed Type Cholecalciferol [Vitamin D3 (25 75 mcg PO MOTUWETHFR 06/12/15 02/04/23 History Mcg = 1000 Iu)] Citalopram Hydrobromide [CeleXA] 20 mg PO DAILY 06/12/15 02/04/23 History Omeprazole 20 mg PO BID 06/12/15 02/04/23 History Simvastatin [Zocor] 20 mg PO HS 06/12/15 02/04/23 History glipiZIDE [Glucotrol XL] 2.5 mg PO DAILY 06/12/15 02/04/23 History Carbidopa/Levodopa [Sinemet 25-100 1 tab PO QID 09/03/19 02/04/23 History mg] Levothyroxine Sodium 88 mcg PO DAILY 09/03/19 02/04/23 History Propranolol HCl 80 mg PO DAILY 09/03/19 02/04/23 History lisinopriL [Prinivil] 10 mg PO DAILY 09/03/19 02/04/23 History Aspirin EC [Ecotrin Low Dose] 81 mg PO DAILY 02/04/23 02/04/23 History Multivitamins, Thera [Multivitamin 1 tab PO DAILY 02/04/23 02/04/23 History (formulary)] buPROPion HCL [Wellbutrin XL] 150 mg PO DAILY 02/04/23 02/04/23 History rOPINIRole HCL [Requip] 0.5 mg PO BID 02/04/23 02/04/23 History Allergies Allergy/AdvReac Type Severity Reaction Status Date / Time No Known Allergies Allergy Verified 02/04/23 09:34 Physical Exam Vitals: Vital Signs Temp Pulse Resp BP Pulse Ox 02/04/23 11:38 78 20 02/04/23 11:31 79 20 02/04/23 10:41 99.0 F 79 20 133/71 94 L 02/04/23 08:46 99.1 F 71 18 141/82 98 02/04/23 07:21 77 20 107/59 97 02/04/23 06:47 80 24 138/79 96 02/04/23 06:13 99.2 F 93 32 H 155/72 75 L Intake and Output 02/03/23 02/04/23 02/04/23 22:59 06:59 14:59 Other: Weight 88.451 kg GENERAL EXAM: Alert, pleasant 77-year-old female, sitting up on the stretcher, on 4 L nasal cannula, fairly comfortable in no apparent distress. HEAD: Normocephalic. EYES: Normal reaction of pupils, equal size. NOSE: Clear with pink turbinates. THROAT: No erythema or exudates. NECK: No masses, no JVD. CHEST: No chest wall deformity. LUNGS: Equal air entry with bilateral end expiratory wheeze, diminished. CVS: S1 and S2 normal with no audible murmur, regular rhythm. ABDOMEN: No hepatosplenomegaly, normal bowel sounds, no guarding or rigidity. SPINE: No scoliosis or deformity SKIN: No rashes CENTRAL NERVOUS SYSTEM: No focal deficits, tone is normal in all 4 extremities. EXTREMITIES: There is no peripheral edema. No clubbing, no cyanosis. Peripheral pulses are intact. Results - Laboratory Findings CBC and BMP: 02/04/23 06:32 02/04/23 06:32 PT/INR, D-dimer PT 10.0 sec (10.0-12.5) 02/04/23 06:32 INR 0.9 (<1.2) 02/04/23 06:32 Abnormal lab findings: Abnormal Labs 02/04/23 02/04/23 06:32 11:47 Chloride 96 L Carbon Dioxide 32 H BUN 21 H Creatinine 0.43 L Glucose 179 H POC Glucose (mg/dL) 123 H - Diagnostic Findings Chest x-ray: image reviewed (Acute pulmonary process) Assessment and Plan Assessment: Acute hypoxemic respiratory failure secondary to an acute tracheobronchitis. Chest x-ray reveals no acute process. Influenza, COVID-19, RSV screens negative. Strep A screen negative. Lifelong nonsmoker Diabetes mellitus Parkinson's disease Hyperlipidemia Hypertension Gastroesophageal reflux disease Plan: The patient was seen and evaluated Chest x-ray, labs and medications reviewed Continue DuoNeb inhalations Add Pulmicort and Perforomist inhalations Solu-Medrol 40 mg every 6 hours Continue with azithromycin Heparin for DVT prophylaxis Continue home medications We will continue to follow and make further recommendations based on her clinical status I have personally seen and examined the patient, performed the documentation and the assessment and plan as written. Number of minutes spent on the visit: 20.
[2023-02-04] MEDS: ACETAMINOPHEN TAB 325 MG TAB PO PRN ×2 (14:00→22:52)
[2023-02-04 17:33] LABS: Glucose,Whole Blood 211 mg/dL (70-110)
[2023-02-04] MEDS: BUDESONIDE 1 MG/2 ML NEBU INHALATION SCH (20:51)
[2023-02-04] MEDS: FORMOTEROL FUMARATE 20 MCG/2 ML NEBU INHALATION SCH (20:51)
[2023-02-04 21:27] LABS: Glucose,Whole Blood 209 mg/dL (70-110)
[2023-02-05] MEDS: methylPREDNISolone SOD SUCCI 40 MG/ML 1 ML VIAL IV SCH ×3 (00:35→12:44)
[2023-02-05] MEDS: SODIUM CHLORIDE 0.45% 1,000 ML IV SCH (05:22)
[2023-02-05 06:56] LABS: Glucose,Whole Blood 153 mg/dL (70-110)
[2023-02-05] MEDS: INSULIN ASPART (NovoLOG) 100 UNIT/ML VIAL SQ SCH ×2 (08:20→12:49)
[2023-02-05] MEDS: HEPARIN SODIUM,PORCINE 5,000 UNIT/ML 1 ML VIAL SQ SCH (08:22)
[2023-02-05] MEDS: AZITHROMYCIN 500 MG TAB PO SCH (08:23)
[2023-02-05] MEDS: FAMOTIDINE 20 MG/2 ML VIAL IV SCH (08:25)
[2023-02-05] MEDS: IPRATROPIUM-ALBUTEROL 3 ML NEB INHALATION SCH ×3 (09:08→15:18)
[2023-02-05] MEDS: BUDESONIDE 1 MG/2 ML NEBU INHALATION SCH (09:08)
[2023-02-05] MEDS: FORMOTEROL FUMARATE 20 MCG/2 ML NEBU INHALATION SCH (09:08)
[2023-02-05] MEDS ORDERED: CITALOPRAM HYDROBROMIDE 20 MG TAB PO SCH (10:00)
[2023-02-05] MEDS ORDERED: MULTIVITAMINS, THERA 1 EACH TAB PO SCH (10:00)
[2023-02-05] MEDS ORDERED: ASPIRIN 81 MG PO SCH (10:00)
[2023-02-05] MEDS ORDERED: LEVOTHYROXINE 88 MCG TAB PO SCH (10:00)
[2023-02-05] MEDS ORDERED: buPROPion XL 150 MG TAB.ER.24H PO SCH (10:00)
[2023-02-05] MEDS ORDERED: PROPRANOLOL 40 MG TAB PO SCH (10:00)
[2023-02-05] MEDS: CARBIDOPA-LEVODOPA 25-100 MG 1 EACH TAB PO SCH ×2 (11:01→15:07)
[2023-02-05] MEDS: ACETAMINOPHEN TAB 325 MG TAB PO PRN (11:02)
[2023-02-05 11:04] LABS: Basophils # (A) 0.01 X 10*3/uL (0.00-0.10); Basophils % (A) 0.1 %; Eosinophils # (A) 0 X 10*3/uL (0.04-0.35); Eosinophils % (A) 0 %; HCT 41.2 % (37.2-46.3); HGB 13.2 g/dL (12.0-15.0); Lymphocytes # (A) 1.17 X 10*3/uL (0.90-5.00); Lymphocytes % (A) 15.9 %; MCH 29.4 pg (27.0-32.0); MCV 91.8 FL (80.0-97.0); Mean Platelet Volume 10.6 FL (9.5-12.2); Monocytes # (A) 0.29 X 10*3/uL (0.20-1.00); Monocytes % (A) 3.9 %; NRBC Per 100 WBC 0 X 10*3/uL (0.00-0.01); Neutrophils # (A) 5.89 X 10*3/uL (1.80-7.70); Platelet Count 222 X 10*3/uL (140-440); RBC 4.49 X 10*6/uL (4.10-5.20); RDW 12.7 % (11.5-14.5); WBC 7.37 X 10*3/uL (4.50-10.00)
[2023-02-05 11:18] LABS: Blood Urea Nitrogen 12.6 mg/dL (9.0-27.0); Calcium 9.3 mg/dL (8.7-10.3); Carbon Dioxide 32.5 mmol/L (21.6-31.8); Chloride 96 mmol/L (96-109); Glucose 167 mg/dL (70-110); Potassium 4.2 mmol/L (3.5-5.5); Sodium 138 mmol/L (135-145)
[2023-02-05 12:29] LABS: Glucose,Whole Blood 208 mg/dL (70-110)
--- NOTE | 2023-02-05 12:45 | P.PN ---
Subjective Progress Note Date: 02/05/23 This is a pleasant 77-year-old female with a known history of hypothyroidism, hypertension, hyperlipidemia, diabetes mellitus of Parkinson's disease, gastroesophageal reflux disease. Lifelong nonsmoker. No history of COPD. No history of asthma. Presented to the emergency room this morning with a 2 day history of increasing shortness of breath, cough and congestion. Chest x-ray revealed no acute pulmonary process. Count 9.0. Hemoglobin 14.0. Platelets 235. Sodium 137. Potassium 4.5. Bicarb 32. BUN 21. Creatinine 0.43. Glucose 179. Pro BNP 313. Influenza screen negative. RSV screen negative. COVID-19 screen negative. Group a strep negative. She is seen today in consultation in the emergency department. She was hypoxemic on arrival O2 saturation at 75%. She is currently 94% on 4 L/m per nasal cannula. She is quite bronchospastic and wheezy. She's been initiated on azithromycin and DuoNeb inhalations. Heparin for DVT prophylaxis. The patient is seen today 02/05/2023 in follow-up in the emergency department. She is currently sitting up in a chair. Awake and alert in no acute distress. Maintaining O2 saturations in the upper 90s on 4 L/m per nasal cannula. Afebril e. Hemodynamically stable. White count 7.3. Hemoglobin 13.2. D-dimer 0.57. Sodium 138. Potassium 4.2. Bicarb 33. BUN 13. Creatinine 0.5. Glucose 167. She is continued on DuoNeb inhalations, Pulmicort and Perforomist inhalations, Solu-Medrol. Heparin for DVT prophylaxis. Antibiotics in the form of azithromycin. Objective - Vital Signs Vital signs: Vital Signs Temp 98.2 F 02/05/23 06:52 Pulse 98 02/05/23 12:00 Resp 24 02/05/23 09:47 BP 152/78 02/05/23 09:47 Pulse Ox 97 02/05/23 09:47 FiO2 Intake & Output 02/04/23 02/05/23 02/05/23 18:59 06:59 18:59 Intake Total 540 Balance 540 Weight 88.451 kg Intake: Oral 540 - Exam GENERAL EXAM: Alert, pleasant 77-year-old female, sitting up in a chair, on 4 L nasal cannula, comfortable in no apparent distress. HEAD: Normocephalic. EYES: Normal reaction of pupils, equal size. NOSE: Clear with pink turbinates. THROAT: No erythema or exudates. NECK: No masses, no JVD. CHEST: No chest wall deformity. LUNGS: Equal air entry with bilateral faint end expiratory wheeze, diminished. CVS: S1 and S2 normal with no audible murmur, regular rhythm. ABDOMEN: No hepatosplenomegaly, normal bowel sounds, no guarding or rigidity. SPINE: No scoliosis or deformity SKIN: No rashes CENTRAL NERVOUS SYSTEM: No focal deficits, tone is normal in all 4 extremities. EXTREMITIES: There is no peripheral edema. No clubbing, no cyanosis. Peripheral pulses are intact. - Labs CBC & Chem 7: 02/05/23 07:25 02/05/23 07:25 Labs: Abnormal Lab Results - Last 24 Hours (Table) 02/04/23 02/04/23 02/05/23 Range/Units 17:32 21:25 06:54 Eosinophils # (0.04-0.35) X 10*3/uL Carbon Dioxide (21.6-31.8) mmol/L Creatinine (0.6-1.5) mg/dL BUN/Creatinine Ratio (12.00-20.00) Ratio Glucose (70-110) mg/dL POC Glucose (mg/dL) 211 H 209 H 153 H (70-110) mg/dL 02/05/23 02/05/23 02/05/23 Range/Units 07:25 07:25 12:27 Eosinophils # 0 L (0.04-0.35) X 10*3/uL Carbon Dioxide 32.5 H (21.6-31.8) mmol/L Creatinine 0.5 L (0.6-1.5) mg/dL BUN/Creatinine Ratio 25.20 H (12.00-20.00) Ratio Glucose 167 H (70-110) mg/dL POC Glucose (mg/dL) 208 H (70-110) mg/dL Assessment and Plan Assessment: Acute hypoxemic respiratory failure secondary to an acute tracheobronchitis. Chest x-ray reveals no acute process. Influenza, COVID-19, RSV screens negative. Strep A screen negative. Lifelong nonsmoker Diabetes mellitus Parkinson's disease Hyperlipidemia Hypertension Gastroesophageal reflux disease Plan: The patient was seen and evaluated Labs and medications reviewed Cleared for discharge from the pulmonary standpoint Evaluate for possible home oxygen Symbicort and albuterol inhaler Complete a course of antibiotics Complete a prednisone taper Follow-up in our office in 1 week I have personally seen and examined the patient, performed the documentation and the assessment and plan as written. Number of minutes spent on the visit: 10.
[2023-02-05 16:24] VITALS: BP 156/68; PULSE 71; RESP 22; TEMP 99.5
[2023-02-05] MEDS ORDERED: ATORVASTATIN 10 MG TAB PO SCH (21:00)
[2023-02-06] MEDS ORDERED: predniSONE 20 MG TAB PO SCH (09:00)
--- NOTE | 2023-02-07 16:43 | P.DS ---
Providers Date of admission: 02/04/23 08:17 Attending physician: Kaila Burnett Consults: 02/04/23 08:21 Consult Physician Routine Consulting Provider: Denise Arroyo Reason/Comments: bronchospasm Do you want consulting provider notified?: Yes Primary care physician: Ibis Ly Hospital Course: Final Diagnosis Acute hypoxic respiratory failure with Acute tracheobronchitis is suspected Upper respiratory tract infection with sore throat, runny nose and dry cough Obesity with BMI of 35.7 Diabetes mellitus Hypertension Hyperlipidemia Hypothyroidism History of anxiety and depression Discharge Disposition Patient is stable for discharge home. Has been cleared by pulmonary to follow up in the office on discharge. Patient is requiring oxygen via nasal cannula on discharge and has been set up with home oxygen for discharge. Patient will require close follow up with pulmonary on discharge needs to see Dr Arroyo in 1 week. Also needs to see PCP Dr Ibis Ly. Recommending 16 day oral steroid taper on discharge as well as 1 more day of oral azithromycin. Patient has been given script for albuterol and symbicort on discharge as well. Hospital Course This is a pleasant 77 years old female with past medical history of diabetes mellitus, hypertension, hyperlipidemia, hypothyroidism, obesity. Patient presents with cold symptoms for the last few days associated with cough and nasal congestion become more short of breath today. Patient states she come to the hospital because of worsening dyspnea over the last 2 hours she's been having dry cough runny nose or throat for the last 2 days. This morning her shortness of breath was significantly worse associated with generalized weakness that required her brother to help her get into the hospital. No chest pain except some with coughing. Patient has no smoking history, no history noted of COPD or asthma. Initial work up shows oxygen saturation 75% on room air was placed on nasal cannula at 4L. Influenza A and type B, RSV, and covid PCR are all NEGATIVE. Chest xray showing no acute process. BNP 313. Patient was admitted to the hospital with consult placed to pulmonary services Was started on IV solumedrol and azithromycin. Patient also was tachypneic with low grade fever. Patient was seen in follow up and on physical examination her lungs sounded fairly clear, however the patient remains relatively hypoxic. She was tested and dose require home oxygen. Wheezing has improved. Patient may have an underlying diagnosis of COPD or asthma. Patient will continue outpatient treatment for the acute tracheobronchitis with steroids. Patient will follow up with pulmonary. patient will be discharged. Review of Systems Constitutional: Denied any fatigue denied any fever. Cardio vascular: denied any chest pain, palpitations Gastrointestinal: denied any nausea, vomiting, diarrhea Pulmonary: Denied any shortness of breath cough Neurologic denied any new focal deficits All inpatient medications were reviewed and appropriate changes in these medications as dictated in the interval history and assessment and plan. PHYSICAL EXAMINATION: GENERAL: The patient is alert and oriented x3, not in any acute distress. Well developed, well nourished. HEENT: Pupils are round and equally reacting to light. EOMI. No scleral icterus. No conjunctival pallor. Normocephalic, atraumatic. No pharyngeal erythema. No thyromegaly. CARDIOVASCULAR: S1 and S2 present. No murmurs, rubs, or gallops. PULMONARY: Faint scattered wheezing. ABDOMEN: Soft, nontender, nondistended, normoactive bowel sounds. No palpable organomegaly. MUSCULOSKELETAL: No joint swelling or deformity. EXTREMITIES: No cyanosis, clubbing, or pedal edema. NEUROLOGICAL: Gross neurological examination did not reveal any focal deficits. SKIN: No rashes. Please see medication reconciliation for a list of current medications. Thank you for allowing us to participate in the care of this patient. The impression and plan of care has been dictated by Bibi Dennis, Nurse Practitioner as directed. Dr. Ar MD I have performed a history and physical examination and medical decision making of this patient, discussed the same with the dictator, and agree with the dictators assessment and plan as written, documented as a scribe. Based on total visit time, I have performed more than 50% of this visit. Patient Condition at Discharge: Fair Plan - Discharge Summary Discharge Rx Participant: No New Discharge Prescriptions: New predniSONE 0 mg PO DIRECTED 16 Days #38 tab Budesonide/Formoterol Fumarate [Symbicort 80-4.5 Mcg Inhaler] 1 puff INHALATION BID #10.2 gm Albuterol Inhaler [Ventolin Hfa Inhaler] 1 puff INHALATION QID #8 gm Azithromycin [Zithromax] 500 mg PO DAILY #1 tab Continue glipiZIDE [Glucotrol XL] 2.5 mg PO DAILY Cholecalciferol [Vitamin D3 (25 Mcg = 1000 Iu)] 75 mcg PO MOTUWETHFR Simvastatin [Zocor] 20 mg PO HS Citalopram Hydrobromide [CeleXA] 20 mg PO DAILY Omeprazole 20 mg PO BID Propranolol HCl 80 mg PO DAILY Levothyroxine Sodium 88 mcg PO DAILY Carbidopa/Levodopa [Sinemet 25-100 mg] 1 tab PO QID rOPINIRole HCL [Requip] 0.5 mg PO BID Multivitamins, Thera [Multivitamin (formulary)] 1 tab PO DAILY buPROPion HCL [Wellbutrin XL] 150 mg PO DAILY Aspirin EC [Ecotrin Low Dose] 81 mg PO DAILY Discontinued lisinopriL [Prinivil] 10 mg PO DAILY Discharge Medication List Cholecalciferol [Vitamin D3 (25 Mcg = 1000 Iu)] 75 mcg PO MOTUWETHFR 06/12/15 [History] Citalopram Hydrobromide [CeleXA] 20 mg PO DAILY 06/12/15 [History] Omeprazole 20 mg PO BID 06/12/15 [History] Simvastatin [Zocor] 20 mg PO HS 06/12/15 [History] glipiZIDE [Glucotrol XL] 2.5 mg PO DAILY 06/12/15 [History] Carbidopa/Levodopa [Sinemet 25-100 mg] 1 tab PO QID 09/03/19 [History] Levothyroxine Sodium 88 mcg PO DAILY 09/03/19 [History] Propranolol HCl 80 mg PO DAILY 09/03/19 [History] Aspirin EC [Ecotrin Low Dose] 81 mg PO DAILY 02/04/23 [History] Multivitamins, Thera [Multivitamin (formulary)] 1 tab PO DAILY 02/04/23 [Hi story] buPROPion HCL [Wellbutrin XL] 150 mg PO DAILY 02/04/23 [History] rOPINIRole HCL [Requip] 0.5 mg PO BID 02/04/23 [History] Albuterol Inhaler [Ventolin Hfa Inhaler] 1 puff INHALATION QID #8 gm 02/05/23 [Rx] Azithromycin [Zithromax] 500 mg PO DAILY #1 tab 02/05/23 [Rx] Budesonide/Formoterol Fumarate [Symbicort 80-4.5 Mcg Inhaler] 1 puff INHALATION BID #10.2 gm 02/05/23 [Rx] predniSONE 0 mg PO DIRECTED 16 Days #38 tab 02/05/23 [Rx] Follow up Appointment(s)/Referral(s): Denise Arroyo MD [STAFF PHYSICIAN] - 1 Week Ibis Ly MD [Primary Care Provider] - 1-[address] [facility],Equipment [NON-STAFF] - As Needed (*Please call [facility] once home to arrange delivery of the oxygen concentrator. ) Patient Instructions/Handouts: COPD (Chronic Obstructive Pulmonary Disease) (DC) Discharge Disposition: HOME WITH HOME HEALTH SERVICES
== END 2023-02-05 16:31 | disposition home health service (06) | DRG 202 ==
LOC: EC 06:11 → 4SSUR 08:17
PROVIDERS: ADMIT Hospitalist; ATTEND Hospitalist
DX: J20.9 Acute bronchitis, unspecified (principal); J96.01 Acute respiratory failure with hypoxia; J44.0 Chronic obstructive pulmonary disease with (acute) lower respiratory infection; E11.9 Type 2 diabetes mellitus without complications; E78.5 Hyperlipidemia, unspecified; E03.9 Hypothyroidism, unspecified; I10 Essential (primary) hypertension; G20.A1 Parkinson's disease without dyskinesia, without mention of fluctuations; K21.9 Gastro-esophageal reflux disease without esophagitis; Z20.822 Contact with and (suspected) exposure to COVID-19; F32.A Depression, unspecified; F41.9 Anxiety disorder, unspecified; I35.0 Nonrheumatic aortic (valve) stenosis; K59.00 Constipation, unspecified; Z66 Do not resuscitate; Z79.82 Long term (current) use of aspirin; Z79.84 Long term (current) use of oral hypoglycemic drugs; Z79.890 Hormone replacement therapy; Z79.899 Other long term (current) drug therapy; Z82.49 Family history of ischemic heart disease and other diseases of the circulatory system; Z90.710 Acquired absence of both cervix and uterus; Z98.42 Cataract extraction status, left eye; Z98.41 Cataract extraction status, right eye; Z90.49 Acquired absence of other specified parts of digestive tract
CPT/HCPCS: 36415; 71045; 80048; 80053; 83036; 83605; 83735; 83880; 84145; 84484; 85025; 85379; 85610; 85730; 87040; 87636; 87651; 93005; 94640; 96372; 96374; 96375; 96376; 99285

== ENCOUNTER → 2023-02-12 | Outpatient (CLI) | payer MEDICARE ==
[2023-02-12 11:40] LABS: African American GFR (CKD) >90 (>60 ml/min/1.73 sqM); Blood Urea Nitrogen 21 mg/dL (7-17); Non-African American GFR(CKD) >90 (>60 ml/min/1.73 sqM)
--- NOTE | 2023-02-12 12:18 | CT ---
EXAMINATION TYPE: CT angio chest DATE OF EXAM: 02/12/2023 12:06 PM COMPARISON: No previous back to 08/01/2023 this examination. HISTORY: SOB CT DLP: 459.80 mGycm Automated exposure control for dose reduction was used. CONTRAST: CTA scan of the thorax is performed with IV Contrast, patient injected with 100 mL of Isovue 370, pul monary embolism protocol. . FINDINGS: Mediastinum and [place]: There is no axillary, mediastinal or hilar lymphadenopathy. Pleural and Pericardial spaces: There are no pleural or pericardial effusions. Upper Abdomen: The visualized upper abdomen is unremarkable. Cardiovascular: There is dilation of the ascending thoracic aorta up to 4.5 cm. Mild vascular calcifi cation is otherwise seen. This is unchanged. There is no evidence of aortic dissection. Mild patchy c oronary artery calcifications are seen. Pulmonary Artery: There are no filling defects in the pulmonary arteries. Lung Parenchyma and Airways: 5.2 mm nodule in the right lower lobe on series 5 image 70 is unchanged. 4.6 mm right lower lobe pulmonary nodule on series 5 image 91 and is unchanged. These are unchanged dating back to 08/01/2019 and no further follow-up is needed. There are no new or enlarging nodules sofi ntified. Bones: No fracture or aggressive osseous lesion. IMPRESSION: 1. No evidence of pulmonary embolism. 2. Unchanged dilation of the ascending thoracic aorta up to 4.5 cm. No evidence of aortic dissection. 3. No evidence of pneumonia, pleural or pericardial effusions. 4. Unchanged pulmonary nodules as above. No specific follow-up recommended.
== END | disposition home or self-care (01) ==
LOC: RADCTMAIN 10:58
PROVIDERS: ATTEND Internal Medicine
DX: R91.8 Other nonspecific abnormal finding of lung field (principal); R06.02 Shortness of breath
CPT/HCPCS: 82565; 84520; 71275; 36415; Q9967

== ENCOUNTER → 2023-06-08 | Outpatient (CLI) | payer MEDICARE ==
[2023-06-08 15:37] LABS: HCT 41.1 % (37.2-46.3); HGB 12.9 g/dL (12.0-15.0); MCH 29.2 pg (27.0-32.0); MCHC 31.4 g/dL (32.0-37.0); Mean Platelet Volume 11.1 FL (9.5-12.2); NRBC Per 100 WBC 0 X 10*3/uL (0.00-0.01); Platelet Count 231 X 10*3/uL (140-440); RBC 4.42 X 10*6/uL (4.10-5.20); RDW 12.3 % (11.5-14.5); WBC 6.84 X 10*3/uL (4.50-10.00)
[2023-06-08 16:00] LABS: Blood Urea Nitrogen 13.5 mg/dL (9.0-27.0); Carbon Dioxide 32.4 mmol/L (21.6-31.8); Chloride 97 mmol/L (96-109); Potassium 4.1 mmol/L (3.5-5.5); Sodium 141 mmol/L (135-145)
== END | disposition home or self-care (01) ==
LOC: LABPAT 08:36
PROVIDERS: ATTEND Internal Medicine Interventional Cardiology
DX: Z01.812 Encounter for preprocedural laboratory examination (principal)
CPT/HCPCS: 80051; 82565; 84520; 85027

== ENCOUNTER 2023-06-15 05:33 | Day surgery (SDC) | payer MEDICARE ==
[2023-06-11 10:42] VITALS: BMI 38.4
[2023-06-15] MEDS: SODIUM CHLORIDE 0.9% 1,000 ML IV ONE ×2 (06:00→08:19)
[2023-06-15] MEDS ORDERED: NITROGLYCERIN SL TABS 0.4 MG TAB SUBLINGUAL PRN (06:01)
[2023-06-15] MEDS ORDERED: ASPIRIN 325 MG TAB PO STA (06:01)
[2023-06-15] MEDS ORDERED: ALPRAZolam 0.25 MG TAB PO PRN (06:01)
[2023-06-15] MEDS ORDERED: ALPRAZolam 0.5 MG TAB PO PRN (06:01)
[2023-06-15] MEDS ORDERED: SODIUM CHLORIDE 0.9% 1,000 ML in EMPTY BAG 1 BAG IV SCH (06:01)
[2023-06-15 06:34] LABS: Glucose,Whole Blood 108 mg/dL (70-110)
[2023-06-15 06:52] VITALS: TEMP 98.1
[2023-06-15 06:56] LABS: African American GFR (CKD) >90 (>60 ml/min/1.73 sqM); Anion Gap 2 mmol/L; Basophils % (A) 0 %; Blood Urea Nitrogen 17 mg/dL (7-17); Calcium 8.8 mg/dL (8.4-10.2); Carbon Dioxide 36 mmol/L (22-30); Chloride 99 mmol/L (98-107); Eosinophils # (A) 0.2 k/uL (0-0.7); Eosinophils % (A) 2 %; Glucose 109 mg/dL (74-99); HCT 37.7 % (34.0-46.0); HGB 12.4 gm/dL (11.4-16.0); Lymphocytes # (A) 1.9 k/uL (1.0-4.8); Lymphocytes % (A) 26 %; MCH 30.2 pg (25.0-35.0); MCHC 32.9 g/dL (31.0-37.0); MCV 91.8 fL (80.0-100.0); Mean Platelet Volume 8.1; Monocytes # (A) 0.5 k/uL (0-1.0); Monocytes % (A) 7 %; Neutrophils # (A) 4.8 k/uL (1.3-7.7); Neutrophils % (A) 64 %; Non-African American GFR(CKD) >90 (>60 ml/min/1.73 sqM); Platelet Count 201 k/uL (150-450); RBC 4.11 m/uL (3.80-5.40); Sodium 137 mmol/L (137-145); WBC 7.5 k/uL (3.8-10.6)
[2023-06-15] MEDS ORDERED: fentaNYL (PF) 50 MCG/ML 2 ML AMP ONE (07:37)
[2023-06-15] MEDS ORDERED: HEPARIN SODIUM 1,000 UN/ML (10ML VL) ONE (07:37)
[2023-06-15] MEDS: BENZOCAINE SPRAY 1 CAN TOPICAL ONE (07:38)
[2023-06-15] MEDS: MIDAZOLAM 2 MG/2 ML VIAL IVP ONE ×2 (07:40→07:46)
[2023-06-15] MEDS: fentaNYL (PF) 50 MCG/1 ML VIAL IVP ONE (07:42)
[2023-06-15] MEDS: VERAPAMIL 2.5 MG/ML 4 ML VIAL INTRAARTER ONE (08:04)
[2023-06-15] MEDS: HEPARIN SODIUM 1,000 UN/ML (10ML VL) IVP ONE (08:09)
[2023-06-15] MEDS: IOPAMIDOL-370 100ML BTL INTRATHECA ONE (08:19)
[2023-06-15] MEDS ORDERED: RX INFO: IV CONTRAST WAS GIVEN 1 EACH MISC MISCELLANE PRN (08:22)
--- NOTE | 2023-06-15 08:25 | P.PCN ---
Date of Procedure: 06/15/23 Operative Findings: TRANSESOPHAGEAL ECHOCARDIOGRAM SIGN HANGER: KIKO SHAFER MD, RPVI INDICATION: Valvular heart disease SEDATION: Conscious sedation COMPLICATION: None LEVEL OF SEDATION Moderate with sedation length of 16 minutes PROCEDURE DESCRIPTION: After obtaining an informed consent, the patient was brought to transesophageal echocardiogram room. Pulse oximetry and heart monitors were attached to the patient. The patient throat was sprayed using lidocaine. The patient was turned into le ft lateral position. After that a bite guard was placed. After an appropriate conscious sedation was initiated, the transesophageal echocardiogram was advanced through a bite guard into the mid esophagus. A 2-D echocardiogram images, color Doppler images, continuous wave images, pulse-wave images, of various cardiac structure were performed. After that the transesophageal echocardiogram probe was advanced into the stomach and fixed to obtain transgastric view was. The probe was brought into the mid esophagus. Inter-atrial septum was interrogated using 2D images, color Doppler images, and then contrast study. After that transesophageal echocardiogram was withdrawn out and upon withdrawing the descending thoracic aorta all the way up to the arch was evaluated. CONCLUSION: 1. Normal LV systolic function with EF around 55 to 60% 2. Mildly dilated right ventricle with normal function 3. Trileaflet aortic valve. Subaortic membrane was seen with turbulence. The gradient was not checked. Please see the gradient on the transthoracic echocardiogram 4. Thickened mitral valve leaflets with moderate mitral regurgitation 5. Moderate tricuspid regurgitation 6. Aneurysmal interatrial septum with evidence of patent foramen ovale
[2023-06-15] MEDS ORDERED: SODIUM CHLORIDE 0.9% 1,000 ML IV SCH (08:30)
--- NOTE | 2023-06-15 08:30 | P.PCN ---
Date of Procedure: 06/15/23 Operative Findings: CARDIAC CATHETERIZATION PERFORMING PHYSICIAN: Jim Osorio MD, RPVI PROCEDURE PERFORMED: 1. Selective right and left coronary angiogram 2. Right heart catheterization 3. Ultrasound-guided access of the right radial artery INDICATION: Shortness of breath and valvular heart disease COMPLICATION: None APPROACH: Right radial artery LEVEL OF SEDATION: Moderate with a sedation length of 38 minutes PROCEDURE DESCRIPTION: After obtaining an informed consent, the patient was brought to cardiac pathology laboratory technologist. Local anesthesia was performed using lidocaine subcutaneously. The right radial artery was cannulated using Seldinger technique, the guidewire passed easily, following that we advanced a 5-[place]ai[place]ese sheath dilator assembly, the wire and dilator were removed and sheath was flushed. Subsequently I did exchange the catheter in the right basilic vein into a 6 [place]ese sheath using 018 wire. Following that, 2 mg of verapamil along with 5000 unit heparin were given. Selective right and left coronary angiogram using a 6-[place]ese JR4 and JL 3.5 catheters. Following that right heart catheterization was performed using a 6 [place] catheter. The procedure was completed there was no complication. SELECTIVE CORONARY ANGIOGRAM: The right coronary artery: Large-caliber vessel and a dominant vessel with mild disease only Left main: Is angiographically normal The left circumflex: Large-caliber vessel nondominant vessel with mild disease only as well The left anterior descending artery: Large-caliber vessel with mild disease only as well HEMODYNAMICS: Pulmonary capillary wedge pressure was 22 mmHg PA pressures were as follows systolic of 60 and diastolic of 21 and mean of 37 mmHg RV pressures were as follows systolic of 61 and end-diastolic of 19 mmHg RA pressure was 17 mmHg Transpulmonary gradient was 15 mmHg CONCLUSION: 1. Mild nonobstructive coronary artery disease 2. Elevated biventricular filling pressure 3. 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 4. The transpulmonary gradient was 15 mmHg POSTPROCEDURE MANAGEMENT: Medical treatment and evaluate the patient surgically for the subaortic membrane
[2023-06-15 09:07] VITALS: RESP 16
[2023-06-15 11:22] VITALS: BP 148/73; PULSE 63
== END 2023-06-15 12:54 | disposition home or self-care (01) ==
LOC: CATHCVL 05:33
PROVIDERS: ATTEND Internal Medicine Interventional Cardiology
DX: I08.1 Rheumatic disorders of both mitral and tricuspid valves (principal); I25.10 Atherosclerotic heart disease of native coronary artery without angina pectoris; Q21.12 Patent foramen ovale; I27.23 Pulmonary hypertension due to lung diseases and hypoxia; I10 Essential (primary) hypertension; E78.5 Hyperlipidemia, unspecified; E11.9 Type 2 diabetes mellitus without complications; E66.3 Overweight; I77.810 Thoracic aortic ectasia; Z79.82 Long term (current) use of aspirin; Z79.899 Other long term (current) drug therapy
CPT/HCPCS: 93312; 93320; 93325; 93456; 76937; 80048; 85025; 99152; 99153; C1769; C1894; C1751; J2250; J1644; Q9967; J3010

== ENCOUNTER 2023-10-20 13:55 | Emergency (ER) | payer MEDICARE ==
[2023-10-20 13:59] VITALS: RESP 16; TEMP 97.8
--- NOTE | 2023-10-20 14:23 | ED ---
Upper Extremity HPI - General Chief Complaint: Extremity Injury, Upper Stated Complaint: shoulder/back pain Time Seen by Provider: 10/20/23 14:21 Source: patient, RN notes reviewed Mode of arrival: wheelchair Limitations: no limitations - History of Present Illness Initial Comments: 77-year-old female presenting with left shoulder pain x 1 month. Patient states she was [facility] by [facility] who performed x-rays and told patient that she had osteoarthritis. Patient states she has been taking anti- inflammatories with no relief, and pain has been worsening. States pain radiates to the back. Pain is worse with flexion of shoulder. Patient states she is on home oxygen due to decreased pulmonary function. Patient is a nontobacco smoker. - Related Data Home Medications Medication Instructions Recorded Confirmed Cholecalciferol [Vitamin D3 (25 50 mcg PO DAILY 06/12/15 06/15/23 Mcg = 1000 Iu)] Citalopram Hydrobromide [CeleXA] 20 mg PO DAILY 06/12/15 06/15/23 Omeprazole 20 mg PO BID@1200,1800 06/12/15 06/15/23 Simvastatin [Zocor] 20 mg PO HS 06/12/15 06/15/23 glipiZIDE [Glucotrol XL] 2.5 mg PO DAILY 06/12/15 06/15/23 Levothyroxine Sodium 88 mcg PO DAILY@0100 09/03/19 06/11/23 Propranolol HCl 80 mg PO DAILY@12 09/03/19 06/15/23 Aspirin EC [Ecotrin Low Dose] 324 mg PO DAILY 02/04/23 06/15/23 Multivitamins, Thera [Multivitamin 1 tab PO DAILY 02/04/23 06/15/23 (formulary)] rOPINIRole HCL [Requip] 0.5 mg PO BID@1200,1800 02/04/23 06/15/23 Carbidopa-Levodopa 25-250 mg 1 each PO 0100,0600,1200,1800 06/11/23 06/11/23 [Sinemet 25-250 mg] Previous Rx's Medication Instructions Recorded Acetaminophen Tab [Tylenol Tab] 500 mg PO Q6H PRN #30 tablet 10/20/23 Lidocaine 5% Patch [Lidoderm 5% 1 patch TOPICAL DAILY 7 Days #7 10/20/23 Patch] patch Allergies Allergy/AdvReac Type Severity Reaction Status Date / Time No Known Allergies Allergy Verified 10/20/23 13:59 Review of Systems ROS Statement: Those systems with pertinent positive or pertinent negative responses have been documented in the HPI. ROS Other: All systems not noted in ROS Statement are negative. Past Medical History Past Medical History: Chest Pain / Angina, Diabetes Mellitus, GERD/Reflux, Hyperlipidemia, Hypertension, Neurologic Disorder, Thyroid Disorder Additional Past Medical History / Comment(s): SOB with activity, talking and rolling over in bed at times, Aortic Stenosis, Parkinson's. History of Any Multi-Drug Resistant Organisms: None Reported Past Surgical History: Appendectomy, Cholecystectomy, Hysterectomy, Orthopedic Surgery, Tonsillectomy Additional Past Surgical History / Comment(s): Right foot spurs removed, bilateral hand surgery, bilateral cataract removal. Past Anesthesia/Blood Transfusion Reactions: No Reported Reaction Additional Past Anesthesia/Blood Transfusion Reaction / Comment(s): No hx blood transfusion. Past Psychological History: Anxiety, Depression Smoking Status: Never smoker Past Alcohol Use History: None Reported Past Drug Use History: None Reported - Past Family History Mother Family Medical History: No Reported History, Cancer, Osteoarthritis (OA) Additional Family Medical History / Comment(s): kidney CA-nephrectomy,passed awayat age 97 Father Family Medical History: Chest Pain / Angina, Coronary Artery Disease (CAD) Additional Family Medical History / Comment(s): CABG ( from complications of), MRSA (post CABG in [place]) Brother(s) Family Medical History: Deep Vein Thrombosis (DVT) General Exam - General Exam Comments Initial Comments: Visual Physical Exam Vital signs reviewed General: Well-appearing, nontoxic, no acute distress. Head: Normocephalic, atraumatic Eyes: PERRLA, EOMI ENT: Airway patent Chest: Nonlabored breathing Skin: No visual rash, normal skin tone Neuro: Alert and oriented 3 Musculoskeletal: No gross abnormalities Limitations: no limitations General appearance: alert, in no apparent distress Respiratory exam: Present: normal lung sounds bilaterally. Absent: respiratory distress, wheezes, rales, rhonchi, stridor Cardiovascular Exam: Present: regular rate, normal rhythm, normal heart sounds. Absent: systolic murmur, diastolic murmur, rubs, gallop, clicks Left Shoulder Exam: Present: normal inspection, full ROM (Pain with flexion), tenderness (Diffuse reproducible tenderness). Absent: swelling Upper Arm exam: Present: normal inspection, full ROM. Absent: tenderness, swelling Elbow exam: Present: normal inspection, full ROM. Absent: tenderness, swelling Forearm Wrist exam: Present: normal inspection, full ROM. Absent: tenderness, swelling Hand Wrist exam: Present: normal inspection, full ROM. Absent: tenderness, swelling Vascular: Present: normal capillary refill, radial pulse (Full sensation and radial pulses bilaterally). Absent: vascular compromise Neurological exam: Present: alert, oriented X3 Psychiatric exam: Present: normal affect, normal mood Skin exam: Present: warm, dry, intact, normal color. Absent: rash Course Vital Signs 10/20/23 10/20/23 13:56 16:24 Temperature 97.8 F Pulse Rate 87 84 Respiratory 16 16 Rate Blood Pressure 113/72 115/78 O2 Sat by Pulse 96 96 Oximetry Medical Decision Making - Medical Decision Making I completed the quick note portion of this chart signed Marge Garcia PA-C Was pt. sent in by a medical professional or institution ([facility] Brock, CLOTH BLEACHING SUPERVISOR, urgent care, hospital, or fdc...) When possible be specific @ -No Did you speak to anyone other than the patient for history (EMS, parent, family, police, friend...)? What history was obtained from this source @ -No Did you review nursing and triage notes (agree or disagree)? Why? @ -I reviewed and agree with nursing and triage notes Were old charts reviewed (outside hosp., previous admission, EMS record, old EKG, old radiological studies, urgent care reports/EKG's, fdc records)? Report findings @ -No old charts were reviewed Differential Diagnosis (chest pain, altered mental status, abdominal pain women, abdominal pain men, vaginal bleeding, weakness, fever, dyspnea, syncope, headache, dizziness, GI bleed, back pain, seizure, CVA, palpatations, mental health, musculoskeletal)? @ -Differential Musculoskeletal Muscular strain, ACS, contusion, ligament sprain, fracture, arthritis, septic arthritis, bursitis, cellulitis, muscle spasm, nerve compression, DVT, arterial occlusion, herpes zoster, electrolyte abnormality, tumor.... This is not meant to be in all inclusive list EKG interpreted by me (3pts min.). @ -None X-rays interpreted by me (1pt min.). @ -Chest x-ray revealed no acute process, left shoulder x-ray revealed mild AC joint osteoarthritis, no acute osseous abnormality, 3 mm density adjacent to greater tuberosity CT interpreted by me (1pt min.). @ -None done U/S interpreted by me (1pt. min.). @ -None done What testing was considered but not performed or refused? (CT, X-rays, U/S, labs)? Why? @ -Further cardiac evaluation not indicated due to symptoms reproducible and appear musculoskeletal on examination What meds were considered but not given or refused? Why? @ -None Did you discuss the management of the patient with other professionals (professionals i.e. , PA, CLOTH BLEACHING SUPERVISOR, lab, RT, psych nurse, social professionals, hvac controls technician, teacher, catapult and arresting gear officer, pillowcase folder)? Give summary @ -No Was smoking cessation discussed for >3mins.? @ -No Was critical care preformed (if so, how long)? @ -No Were there social determinants of health that impacted care today? How? (Homelessness, low income, unemployed, alcoholism, drug addiction, transportation, low edu. Level, literacy, decrease access to med. care, detention, rehab)? @ -No Was there de-escalation of care discussed even if they declined (Discuss DNR or withdrawal of care, Hospice)? DNR status @ -No What co-morbidities impacted this encounter? (DM, HTN, Smoking, COPD, CAD, Ca ncer, CVA, ARF, Chemo, Hep., AIDS, mental health diagnosis, sleep apnea, morbid obesity)? @ -None Was patient admitted / discharged? Hospital course, mention meds given and route, prescriptions, significant lab abnormalities, going to OR and other pertinent info. @ -Patient was discharged. Patient was seen and evaluated for left shoulder pain x 1 month. Patient is currently following with [facility] for left shoulder pain. Denies chest pain, shortness of breath. Vitals wnl. Patient is neurovascularly intact. Pain is reproducible on physical examination, patient has pain with shoulder flexion. Chest x-ray revealed no acute process. Left shoulder x-ray revealed mild AC joint osteoarthritis, no acute osseous abnormality, 3 mm density adjacent to greater tuberosity. Discuss ed findings with patient. Symptoms are likely MSK related at this time and patient is advised to follow-up with [facility]. Return parameters discussed and patient is agreeable to plan. Analgesics provided upon discharge. Case was discussed with my ED attending Dr. Moran. Patient discharged in stable condition. Undiagnosed new problem with uncertain prognosis? @ -No Drug Therapy requiring intensive monitoring for toxicity (Heparin, Nitro, Insulin, Cardizem)? @ -No Were any procedures done? @ -No Diagnosis/symptom? @ -Left shoulder strain Acute, or Chronic, or Acute on Chronic? @ -Acute Uncomplicated (without systemic symptoms) or Complicated (systemic symptoms)? @ -Uncomplicated Side effects of treatment? @ -No Exacerbation, Progression, or Severe Exacerbation? @ -No Poses a threat to life or bodily function? How? (Chest pain, USA, ID, pneumonia, PE, COPD, DKA, ARF, appy, cholecystitis, CVA, Diverticulitis, Homicidal, Suicidal, threat to staff... and all critical care pts) @ -No Disposition Clinical Impression: Left shoulder strain Disposition: HOME SELF-CARE Condition: Stable Instructions (If sedation given, give patient instructions): Rotator Cuff Injury (ED) Additional Instructions: Follow-up with [facility] as discussed. Please return to the Emergency Department if symptoms worsen or any other concerns. Prescriptions: Lidocaine 5% Patch [Lidoderm 5% Patch] 1 patch TOPICAL DAILY 7 Days #7 patch Acetaminophen Tab [Tylenol Tab] 500 mg PO Q6H PRN #30 tablet PRN Reason: Pain Is patient prescribed a controlled substance at d/c from ED?: No Referrals: Ibis Ly MD [Primary Care Provider] - 1-2 days Time of Disposition: 17:09
--- NOTE | 2023-10-20 15:55 | XR ---
EXAMINATION TYPE: XR chest 2V, XR shoulder complete 3 views LT DATE OF EXAM: 10/20/2023 COMPARISON: Chest 02/04/2023 HISTORY: 77-year-old female left shoulder pain FINDINGS: Chest: Heart borderline in size. Tortuous/ectatic thoracic aorta. Mild interstitial prominence has a chronic appearance. No consolidation or pleural effusion. Strandy atelectasis at the left base. Partially vi sualized right shoulder arthroplasty. Left shoulder: Mild degenerative change at the AC joint with marginal spurring and capsular hypertrophy. Subacromial space is preserved. No acute fracture, subluxation or dislocation is seen. There is a tiny 3 mm calc ification adjacent to the greater tuberosity which is nonspecific. IMPRESSION: 1. Chest: Chronic changes. No acute process seen. 2. Left shoulder: Mild AC joint OA. No acute osseous abnormality seen. A 3 mm density adjacent to the greater tuberosity is nonspecific. Correlate to exclude the possibility of calcific tendinitis of th e rotator cuff.
[2023-10-20 16:25] VITALS: BP 115/78; PULSE 84
== END 2023-10-20 17:30 | disposition home or self-care (01) ==
LOC: EC 13:55
CPT/HCPCS: 71046; 99283

== ENCOUNTER → 2024-02-10 | Outpatient (CLI) | payer MEDICARE ==
--- NOTE | 2024-02-11 08:27 | MM ---
Reason for Exam: Screening (asymptomatic). Last mammogram was performed 1 year(s) and 10 month(s) ago. Patient History: Menarche at age 11. First Full-Term at age 18. Left ovary removed at age 52. Right ovary removed at age 52. Hysterectomy at age 34. Postmenopausal. 07/31/2014, Benign Core Biopsy on the left side. Risk Values: Jelly 5 year model risk: 1.4%. NCI Lifetime model risk: 2.4%. Prior Study Comparison: 12/05/2019 Bilateral Screening Mammogram, [facility]. 02/12/2021 Bilateral Screening Mammogram, [facility]. 04/21/2022 Bilateral MG 3D screening mammo w/cad, [facility]. Tissue Density: The breasts are heterogeneously dense, which may obscure small masses. Findings: Analyzed By CAD. There is no suspicious group of microcalcifications or new suspicious mass in either breast. Overall Assessment: Benign, BI-RAD 2 Management: Screening Mammogram of both breasts in 1 year. . Patient should continue monthly self-breast exams. A clinical breast exam by your physician is recommended on an annual basis. This exam should not preclude additional follow-up of suspicious palpable abnormalities. Note on Jelly scores and lifetime risk: 1. A Jelly score greater than 3% is considered moderate risk. If this is the case, consider specialist referral to assess eligibility for a risk reducing agent. 2. If overall lifetime risk for the development of breast cancer is 20% or higher, the patient may qualify for future screening with alternating mammogram and breast MRI. [facility], , 02/11/2024 8:23 AM. Electronically signed and approved by: Dae Gongora M.D. Radiologis
== END | disposition home or self-care (01) ==
LOC: RADMAMWWP 13:14
PROVIDERS: ATTEND Family Medicine
DX: Z12.31 Encounter for screening mammogram for malignant neoplasm of breast (principal); Z90.722 Acquired absence of ovaries, bilateral; Z78.0 Asymptomatic menopausal state; R92.333 Mammographic heterogeneous density, bilateral breasts
CPT/HCPCS: 77063; 77067

== ENCOUNTER → 2024-03-24 | Outpatient (CLI) | payer MEDICARE ==
[2024-03-24 14:48] LABS: Basophils # (A) 0.04 X 10*3/uL (0.00-0.10); Basophils % (A) 0.6 %; Eosinophils # (A) 0.13 X 10*3/uL (0.04-0.35); Eosinophils % (A) 1.8 %; HCT 40.6 % (37.2-46.3); HGB 13.2 g/dL (12.0-15.0); Lymphocytes # (A) 2.29 X 10*3/uL (0.90-5.00); Lymphocytes % (A) 32.2 %; MCH 28.8 pg (27.0-32.0); MCHC 32.5 g/dL (32.0-37.0); MCV 88.5 FL (80.0-97.0); Mean Platelet Volume 10.7 FL (9.5-12.2); Monocytes # (A) 0.52 X 10*3/uL (0.20-1.00); Monocytes % (A) 7.3 %; NRBC Per 100 WBC 0 X 10*3/uL (0.00-0.01); Neutrophils # (A) 4.11 X 10*3/uL (1.80-7.70); Neutrophils % (A) 57.8 %; Platelet Count 277 X 10*3/uL (140-440); RBC 4.59 X 10*6/uL (4.10-5.20); RDW 12.4 % (11.5-14.5); WBC 7.11 X 10*3/uL (4.50-10.00)
[2024-03-24 15:43] LABS: ALT 11 U/L (8-44); AST 22 U/L (13-35); Albumin 4.3 g/dL (3.8-4.9); Albumin/Globulin Ratio 2.05 Ratio (1.60-3.17); Alkaline Phosphatase 97 U/L (41-126); Blood Urea Nitrogen 13.3 mg/dL (9.0-27.0); Calcium 9.9 mg/dL (8.7-10.3); Carbon Dioxide 28.9 mmol/L (21.6-31.8); Chloride 99 mmol/L (96-109); Chol/HDL Ratio 3.04 Ratio; Globulin 2.1 g/dL (1.6-3.3); Glucose 100 mg/dL (70-110); LDL Cholesterol,Calculated 70.4 mg/dL (0.0-131.0); Sodium 140 mmol/L (135-145); T4, Free (Free Thyroxine) 1.53 ng/dL (0.80-1.80); Total Bilirubin 0.4 mg/dL (0.3-1.2); Total Protein 6.4 g/dL (6.2-8.2)
[2024-03-24 17:47] LABS: Microalbumin Creatinine Ratio <12 mg/g Cr (0-30); Urine Creatinine 98.4 mg/dL (28.0-217.0)
== END | disposition home or self-care (01) ==
LOC: LABWHC1 08:47
PROVIDERS: ATTEND Family Medicine
DX: Z00.01 Encounter for general adult medical examination with abnormal findings (principal); E11.65 Type 2 diabetes mellitus with hyperglycemia; D51.9 Vitamin B12 deficiency anemia, unspecified; E55.9 Vitamin D deficiency, unspecified
CPT/HCPCS: 36415; 80053; 80061; 82043; 82306; 82570; 82607; 83036; 84439; 84443; 85025